=== PATIENT | male | born 1945 | race Caucasian/White ===

== ENCOUNTER → 2017-10-11 13:02 | Outpatient (CLI) | payer OTHER, SELFPAY ==
--- NOTE | 2017-10-11 | DI.CT.S_ITS ---
PROCEDURE: CT HEAD/BRAIN WO CON INDICATIONS: LEFT SIDED WEAKNESS/FACIAL DROOP TECHNIQUE: Noncontrast 4.5 mm thick angled axial sections acquired from the foramen magnum to the vertex, with coronal and sagittal reformats. For radiation dose reduction, the following was used: automated exposure control, adjustment of mA and/or kV according to patient size. COMPARISON: None. FINDINGS: Image quality: Excellent. CSF spaces: Basal cisterns are patent. No extra-axial fluid collections. The ventricles are symmetric in size and shape. Brain: No intracranial bleeds or masses. There is cerebral volume loss for age, with resultant ventricular and sulcal prominence. There are periventricular and deep white matter chronic small vessel ischemic changes. There is intracranial internal carotid artery atherosclerosis. Skull and face: Calvarium and visualized facial bones appear intact, without suspicious lesions. Sinuses: Visualized sinuses and mastoids are clear. IMPRESSION: No acute intracranial disease process. Dictated by: Meg Garcia MD, PhD on 10/11/2017 at 13:35 Approved by: Meg Garcia MD, PhD on 10/11/2017 at 13:37
== END ==
PROVIDERS: Family Provider Family Medicine; PCP Family Medicine; Visit Provider Family Medicine
DX: R53.1 Weakness (principal); R29.810 Facial weakness
CPT/HCPCS: 70450

== ENCOUNTER 2017-11-03 12:55 | Inpatient (IN) | payer OTHER, SELFPAY ==
[2017-11-03] VITALS (7 sets, daily range): BP systolic 105–147; BP diastolic 65–92; PULSE 56–80; RESP 14–20; TEMP 36.6–37.1; O2SAT 90–100; BMI 27.8
--- NOTE | 2017-11-03 13:25 | DI.CT.S_ITS ---
PROCEDURE: CT HEAD/BRAIN WO CON INDICATIONS: 72 year-old male with multiple falls. TECHNIQUE: Noncontrast 4.5 mm thick angled axial sections acquired from the foramen magnum to the vertex, with coronal and sagittal reformats. For radiation dose reduction, the following was used: automated exposure control, adjustment of mA and/or kV according to patient size. COMPARISON: [facility], CT, CT HEAD/BRAIN WO CON, 10/11/2017, 13:07. [facility], CT, HEAD WITHOUT CONTRAST, 12/19/2011, 10:14. FINDINGS: Image quality: Excellent. CSF spaces: Basal cisterns are patent. No extra-axial fluid collections. The ventricles are symmetric in size and shape. Brain: No intracranial bleeds or masses. Melgoza-white matter interface appears intact. There is intracranial internal carotid artery atherosclerosis. Skull and face: Calvarium and visualized facial bones appear intact, without suspicious lesions. Sinuses: Visualized sinuses and mastoids are clear. IMPRESSION: No acute intracranial abnormalities. Dictated by: Efrain Black M.D. on 11/03/2017 at 14:02 Approved by: Efrain Black M.D. on 11/03/2017 at 14:06
--- NOTE | 2017-11-03 14:08 | ED_ITS ---
HPI - Neuro Symptoms/Deficit General Chief Complaint: Neuro Symptoms/Deficit Stated Complaint: complications with Parkinsons Time Seen by Provider: 11/03/17 13:09 Source: patient and family Mode of arrival: ambulatory Limitations: no limitations History of Present Illness HPI Narrative: 72-year-old male with history of hyperlipidemia, Parkinson's, and chronic alcohol abuse presents to the emergency department with rapidly worsening confusion, auditory, and visual hallucinations for the past few days. Additionally he has fallen 3 times today. Furthermore he has been wandering out of the house and found entering the street as well. He denies any loss of consciousness as result of his falls. He denies any change in his alcohol consumption recently though he used to drink about 6 beers daily and is down to 2 or 3. Related Data Home Medications Medication Instructions Recorded Confirmed atorvastatin [Lipitor] 40 mg PO QDAY #0 06/23/16 11/03/17 carbidopa 50 mg PO HS #0 06/23/16 11/03/17 [id number] 5XD #0 06/23/16 rivastigmine [Exelon] 9.5 mg TD Q DAY #0 06/23/16 11/03/17 sertraline 100 mg PO DAILY 11/03/17 11/03/17 tolterodine 11/03/17 Allergies Allergy/AdvReac Type Severity Reaction Status Date / Time No Known Allergies Allergy Uncoded 09/05/17 13:01 Review of Systems Review of Systems All systems reviewed & are unremarkable except as noted in HPI and below Constitutional Denies chills, Denies fever(s), Denies lethargy and Denies weakness Eyes Denies change in vision, Denies eye discharge, Denies irritation and Denies loss of vision ENT Ears, Nose, Mouth, and Throat: Denies change in voice, Denies neck pain and Denies sore throat Cardiovascular Denies chest pain, Denies irregular heart rhythm, Denies lightheadedness, Denies palpitations, Denies dyspnea, Denies dyspnea on exertion and Denies orthopnea Respiratory Denies cough, Denies dyspnea, Denies dyspnea on exertion and Denies wheezing Gastrointestinal Gastrointestinal: Denies abdominal pain, Denies change in bowel habits, Denies diarrhea, Denies nausea and Denies vomiting Genitourinary Denies hematuria, Denies flank pain, Denies urinary incontinence and Denies urinary urgency Musculoskeletal Denies neck pain Integumentary/Breasts Denies pruritus, Denies erythema, Denies rash and Denies wounds Neurologic Reports behavioral changes, Reports confusion, Denies loss of vision and Denies weakness Psychiatric Denies anxiety, Reports behavioral changes, Reports confusion, Denies depression , Reports paranoia, Reports visual hallucinations, Reports hallucinations, Denies homicidal ideation and Denies suicidal ideation Endocrine Denies palpitations Hematologic/Lymphatic Denies easy bruising Allergic/Immunologic Denies wheezing PFSH Medical History Parkinson's disease dementia (Chronic) Hyperlipemia (Chronic) Multiple falls (Acute) Parkinson's disease (Chronic) Weakness generalized (Chronic) Dysphagia (Chronic) Social History Smoking Status: Former smoker Exam Narrative Exam Narrative: Pleasantly confused 72-year-old male in mild distress with some pressured speech Initial Vital Signs Initial Vital Signs: Vital Signs Temperature 98.2 F 11/03/17 13:11 Pulse Rate 59 L 11/03/17 13:11 Respiratory Rate 20 11/03/17 13:11 Blood Pressure 105/65 11/03/17 13:11 Pulse Oximetry 100 11/03/17 13:11 Const General: cooperative and well developed Nutritional Appearance: well nourished Orientation: alert, awake, oriented to person, oriented to place and confused [facility] Head: normocephalic and atraumatic Ears: external ears normal and TM's normal bilaterally Nose: external nose normal and No nasal discharge Face and sinus: sinuses nontender, face symmetric, no sinus tenderness and No dry mucous membranes Mouth: oral mucosae normal and moist mucous membranes Teeth and gingiva: dentition normal Throat: tonsils normal and uvula midline Eyes General: appearance normal, both eyes and all related structures Eyelids: eyelids normal Conjunctivae: conjunctivae normal Sclera: sclerae normal Pupils: PERRL EOM: EOM intact bilaterally Chest Chest: normal inspection of the chest Resp Effort & Inspection: normal respiratory effort, able to speak in complete sentences, no respiratory distress and no use of accessory muscles Auscultation: clear to auscultation bilaterally, no rales, no rhonchi and no wheezes GI Inspection: non-distended Palpation: soft, no hepatosplenomegaly, No guarding, No pulsatile mass and No tender Auscultation: normal bowel sounds Back/Spine/Pelvis Back: No CVA tenderness Cervical Spine: cervical ROM normal and No pain with cervical ROM Thoracic/Lumbar Spine: thoracic and lumbar spine normal to inspection Skin General: no rashes or lesions noted, No jaundice and No petechiae Neuro General: alert and awake Cranial Nerves: CN's II-XI intact bilaterally Speech: speech normal Sensory Exam: no sensory deficits noted Other: Mild resting tremor of bilateral upper extremities Psych Appearance: disheveled Speech and Movement: delayed speech and slowed movement Affect: blunted Attitude: cooperative Course Orders Ordered: ED Orders 11/03/17 13:25 CT head/brain wo con Stat Rapid Drug Screen, Urine Stat Urinalysis and Microscopic Stat EKG-12 Lead Stat 11/03/17 13:48 Ammonia (NH3) Stat Complete Blood Count AUTO DIFF Stat Comprehensive Metabolic Panel Stat Ethanol (ETOH) Stat Partial Thromboplastin Time Stat Prolactin Stat Prothrombin Time INR Stat 11/03/17 16:19 Education, smoking cessation ONGOING 11/03/17 16:25 Consult to Discharge Planning Routine Consult to Occupational Therapy Evaluate & Treat Consult to Physical Therapy Evaluate & Treat Complete Blood Count AUTO DIFF Routine 11/04/17 05:00 Comprehensive Metabolic Panel Routine Acetaminophen (Tylenol) 650 mg PO Q6HR PRN PRN Reason: As Needed for Fever/Mild Pain Al Hydrox/Mg Hydrox/Simethicone (Maalox Plus) 30 ml PO Q6HR PRN PRN Reason: Dyspepsia Atorvastatin Calcium (Lipitor) 40 mg PO DAILY VENKATESH Enoxaparin Sodium (Lovenox) 40 mg SUBCUT DAILY [facility]KATES[facility] Dextrose/Sodium Chloride (Dextrose 5%-0.9% Ns) 1,000 mls @ 100 mls/hr IV CONT VENKATESH Magnesium Hydroxide (Milk Of Magnesia) 30 ml PO DAILY PRN PRN Reason: Constipation Non-Formulary Medication (Carbidopa [Carbidopa]) 25 mg PO BEDTIME VENKATESH Non-Formulary Medication (Rivastigmine [Exelon]) 9.5 mg TD DAILY V[facility]KATES[facility] Non-Formulary Medication (Carbidopa/Levodopa/Encap 18.75/75/200) 18.75 mg PO 5XD [facility]KATES[facility] Pantoprazole Sodium (Protonix) 20 mg PO 0600 [facility]KATES[facility] Sertraline HCl (Zoloft) 100 mg PO DAILY V[facility]KATESH Discontinued Medications Sodium Chloride (Normal Saline 0.9%) 1,000 mls @ 150 mls/hr IV CONT VENKATESH Last Infusion: 11/03/17 16:18 Dose: 0 mls/hr Admin: 11/03/17 14:10 Dose: 150 mls/hr Thiamine HCl 100 mg/ Dextrose 51 mls @ 204 mls/hr IV NOW ONE Stop: 11/03/17 13:26 Last Infusion: 11/03/17 14:22 Dose: 0 mls/hr Admin: 11/03/17 14:10 Dose: 204 mls/hr Consultations Consultation #1: Patient seen and evaluated at the bedside by his primary care provider whom will admit Vital Signs - 8 hr 11/03/17 13:11 11/03/17 14:13 11/03/17 15:00 Temperature 98.2 F Pulse Rate 59 L 61 80 Respiratory Rate 20 14 20 Blood Pressure 105/65 Blood Pressure [Left Arm] 133/75 H 147/92 H Pulse Oximetry 100 90 L 94 11/03/17 16:00 11/03/17 16:25 Temperature 98.8 F Pulse Rate 65 56 L Respiratory Rate 18 Blood Pressure 136/72 H Blood Pressure [Left Arm] 108/89 H Pulse Oximetry 94 98 MDM - Neuro Symptoms/Deficit Differential Diagnosis Likely delirium, cerebrovascular accident, transient cerebral ischemia and other (Wernicke's, polypharmacy, UTI, ethanol withdrawal) Medical Records Attestation: I reviewed the patient's medical records. Lab Data Attestation: I reviewed the patient's lab results. Result diagrams: 11/03/17 13:48 11/03/17 13:48 Lab Results 11/03/17 11/03/17 11/03/17 Range/Units 13:48 13:48 13:48 WBC (4.5-11.0) X10^3/uL RBC (4.5-5.9) X10^6/uL Hgb (13.5-17.5) g/dL Hct (41-53) % MCV (80-100) fL MCH (26-34) PG MCHC (30-36) % RDW (11.6-14.8) % Plt Count (150-400) X10^3/uL Neut % (Auto) (50-75) % Lymph % (Auto) (25-40) % Bosque % (Auto) (3-14) % Eos % (Auto) (2-4) % Baso % (Auto) (0-2) % Neut # (Auto) (2990-6137) /uL PT 12.3 (10.1-12.7) SECONDS INR 1.1 (0.9-1.3) APTT 29 (26.4-36.2) SECONDS Sodium 141 (137-145) mmol/L Potassium 4.1 (3.4-5.1) mmol/L Chloride 104 (98-107) mmol/L Carbon Dioxide 27 (22-32) mmol/L BUN 20 (9-20) mg/dL Creatinine 1.00 (0.66-1.25) mg/dL Estimated GFR > 60.0 (>60) mL/min BUN/Creatinine Ratio 20.0 (6-22) Glucose 90 (80-110) mg/dL Calcium 9.1 (8.4-10.2) mg/dL Total Bilirubin 1.0 (0.2-1.3) mg/dL AST 21 (17-59) IU/L ALT 21 (21-72) IU/L Alkaline Phosphatase 64 (38-126) U/L Ammonia < 9.0 L (9-30) umol/L Total Protein 6.9 (6.3-8.2) g/dL Albumin 4.1 (3.5-5.0) g/dL Globulin 2.8 (1.7-4.1) g/dL Albumin/Globulin Ratio 1.5 (1.0-2.8) Prolactin 10.3 (3.7-17.9) ng/mL Ethyl Alcohol < 10 mg/dL 11/03/17 Range/Units 13:48 WBC 9.0 (4.5-11.0) X10^3/uL RBC 4.72 (4.5-5.9) X10^6/uL Hgb 14.3 (13.5-17.5) g/dL Hct 41.8 (41-53) % MCV 88.6 (80-100) fL MCH 30.3 (26-34) PG MCHC 34.3 (30-36) % RDW 12.9 (11.6-14.8) % Plt Count 152 (150-400) X10^3/uL Neut % (Auto) 73.1 (50-75) % Lymph % (Auto) 18.7 L (25-40) % Bosque % (Auto) 7.4 (3-14) % Eos % (Auto) 0.4 L (2-4) % Baso % (Auto) 0.4 (0-2) % Neut # (Auto) 6600 H (6000-9485) /uL PT (10.1-12.7) SECONDS INR (0.9-1.3) APTT (26.4-36.2) SECONDS Sodium (137-145) mmol/L Potassium (3.4-5.1) mmol/L Chloride (98-107) mmol/L Carbon Dioxide (22-32) mmol/L BUN (9-20) mg/dL Creatinine (0.66-1.25) mg/dL Estimated GFR (>60) mL/min BUN/Creatinine Ratio (6-22) Glucose (80-110) mg/dL Calcium (8.4-10.2) mg/dL Total Bilirubin (0.2-1.3) mg/dL AST (17-59) IU/L ALT (21-72) IU/L Alkaline Phosphatase (38-126) U/L Ammonia (9-30) umol/L Total Protein (6.3-8.2) g/dL Albumin (3.5-5.0) g/dL Globulin (1.7-4.1) g/dL Albumin/Globulin Ratio (1.0-2.8) Prolactin (3.7-17.9) ng/mL Ethyl Alcohol mg/dL Discharge Plan Departure Patient Disposition: Admitted As Inpatient Clinical Impression: Acute delirium, Multiple falls Discharge Date/Time: 11/03/17 16:34 Interventions: ED Discharge Assessment Last Done: 11/03/17 16:16 Admit Date/Time: 11/03/17 15:59 Admit Provider: Hao Peña
[2017-11-03] MEDS: THIAMINE 100 MG in DEXTROSE 5 % IN WATER 50 ML 204 ML IV (14:10)
[2017-11-03] MEDS: SODIUM CHLORIDE 0.9% 1,000 ML 150 ML IV (14:10)
[2017-11-03 14:11] LABS: Add Manual Diff / Slide Review NO; Basophils Percent Auto 0.4 % (0-2); Eosinophils Percent Auto 0.4 % (2-4); Hematocrit 41.8 % (41-53); Hemoglobin 14.3 g/dL (13.5-17.5); INR 1.1 (0.9-1.3); Lymphocytes Percent Auto 18.7 % (25-40); Mean Corpuscular HGB Conc 34.3 % (30-36); Mean Corpuscular Hemoglobin 30.3 PG (26-34); Mean Corpuscular Volume 88.6 fL (80-100); Monocytes Percent Auto 7.4 % (3-14); Neutrophils Absolute Auto 6600 /uL (3000-5900); Neutrophils Percent Auto 73.1 % (50-75); Platelet Count 152 X10^3/uL (150-400); Prothrombin Time 12.3 SECONDS (10.1-12.7); Red Blood Cell Count 4.72 X10^6/uL (4.5-5.9); Red Cell Distribution Width 12.9 % (11.6-14.8)
[2017-11-03 14:14] LABS: PTT Partial Thromboplastin Tim 29 SECONDS (26.4-36.2)
[2017-11-03 14:15] LABS: Ammonia (NH3) < 9.0 umol/L (9-30)
[2017-11-03 14:17] LABS: Alanine Aminotransferase 21 IU/L (21-72); Albumin 4.1 g/dL (3.5-5.0); Albumin Globulin Ratio 1.5 (1.0-2.8); Alkaline Phosphatase 64 U/L (38-126); Aspartate Aminotransferase 21 IU/L (17-59); Blood Urea Nitrogen 20 mg/dL (9-20); Calcium 9.1 mg/dL (8.4-10.2); Carbon Dioxide 27 mmol/L (22-32); Chloride 104 mmol/L (98-107); Estimated Glomerular Filt Rate > 60.0 mL/min (>60); Ethanol (ETOH) < 10 mg/dL; Globulin 2.8 g/dL (1.7-4.1); Glucose 90 mg/dL (80-110); HEMOLYSIS 17 (0-50); Potassium 4.1 mmol/L (3.4-5.1); Sodium 141 mmol/L (137-145); Total Protein 6.9 g/dL (6.3-8.2)
[2017-11-03 14:32] LABS: Prolactin 10.3 ng/mL (3.7-17.9)
--- NOTE | 2017-11-03 16:37 | PM.HP.1 ---
History of Present Illness Date Patient Seen: 11/03/17 Time Patient Seen: 16:39 Chief complaint: complications with Parkinsons Narrative: Longstanding patient of mine has developed Parkinson's over the past several years followed closely by Neurology and on medications he has progressed to a more complicated process over these past several months with more confusion, hallucinosis, unstable gait, and some concerns of dementia. I think I last saw him in the office last month in the 1 of the concerns at that time was urinary incontinence so we had addressed that with any medication. Neurology is also made some adjustments as they try to deal with his hallucinosis though does seem to be helping very much. Family is present during the interview on the offer that over the past week or so he has worsened significantly, noting hallucinations pretty much all day when he is sleeping. He is seeing children in the yd a boat other things that do not make any sense hearing things as well. Izabel seems also more unsteady on his feet he seems to cross his legs when he tries to walk often tripping and falling. Today he was sitting in a sit-down walker when somehow he managed to fall over backwards and not his head pretty hard on a hard floor this combination of factors has left the family very concerned about his safety. Also today he wandered off and wanted some distance from home and the whole picture had them concerned enough that it was time to have him evaluated. He is brought to the emergency room where he was evaluated with labs and imaging nothing really clear to clearly shows up. He does have an alcohol history although according to family he is actually drinking less now than usual sounds like a six-pack of beer a night was his usual now it is more like 1 beer. Patient History Medical History Parkinson's disease dementia (Chronic) Hyperlipemia (Chronic) Multiple falls (Acute) Parkinson's disease (Chronic) Weakness generalized (Chronic) Dysphagia (Chronic) Family & Social History Family history unavailable: Yes Social History: Lives locally well supported by family, retired. Safety & Behavioral: Feels Safe in Current Yes Environment Tobacco & Substance use: Smoking Status Former smoker alcohol intake frequency 0-2 drinks per day Substance Use Type does not use Comment: Parkinson's disease with progressive dementia developing over the past several years. Hyperlipidemia Alcohol use Former smoker Meds Home Medications Medication Instructions Recorded Confirmed Type atorvastatin [Lipitor] 40 mg PO QDAY #0 06/23/16 11/03/17 History carbidopa 50 mg PO HS #0 06/23/16 11/03/17 History [id number] 5XD #0 06/23/16 History rivastigmine [Exelon] 9.5 mg TD Q DAY #0 06/23/16 11/03/17 History sertraline 100 mg PO DAILY 11/03/17 11/03/17 History tolterodine 11/03/17 History Allergies Allergy/AdvReac Type Severity Reaction Status Date / Time No Known Allergies Allergy Uncoded 09/05/17 13:01 Review of Systems Constitutional Constitutional: Reports frequent falls and Reports weakness Eyes Eyes: Reports system reviewed; no additional complaints, except as documented ENT Ears, Nose, Mouth, and Throat: Yes system reviewed; no additional complaints, except as documented and Yes dizziness Cardiovascular Cardiovascular: Reports system reviewed; no additional complaints, except as documented Respiratory Respiratory: Reports system reviewed and no additional complaints, except as documented Gastrointestinal Gastrointestinal: Reports system reviewed and no additional complaints, except as documented Genitourinary Genitourinary: Reports urinary incontinence Musculoskeletal Musculoskeletal: Reports abnormal gait and Reports muscle weakness Integumentary/Breasts Skin/Breast: Reports system reviewed and no additional complaints, except as documented Neurologic Neurologic: Reports abnormal movements, Reports abnormal speech, Reports abnormal gait, Reports behavioral changes, Reports confusion, Reports dizziness, Reports frequent falls, Reports lack of coordination, Reports memory loss, Reports other visual disturbances, Reports tremor(s) and Reports weakness Psychiatric Psychiatric: Reports behavioral changes, Reports confusion, Reports auditory hallucinations, Reports memory loss, Reports visual hallucinations and Reports tactile hallucinations Endocrine Endocrine: Reports system reviewed and no additional complaints, except as documented Hematologic/Lymphatic Hematologic/Lymphatic: Reports system reviewed and no additional complaints, except as documented Allergic/Immunologic Allergic/Immunologic: Reports system reviewed and no additional complaints, except as documented Exam Vital Signs (past 8 hours): Vital Signs - 8 hr 11/03/17 13:11 11/03/17 14:13 11/03/17 15:00 Temperature 98.2 F Pulse Rate 59 L 61 80 Respiratory Rate 20 14 20 Blood Pressure 105/65 Blood Pressure [Left Arm] 133/75 H 147/92 H Pulse Oximetry 100 90 L 94 11/03/17 16:00 Temperature Pulse Rate 65 Respiratory Rate Blood Pressure Blood Pressure [Left Arm] 108/89 H Pulse Oximetry 94 Pulse Oximetry 94 Oxygen Delivery Method Room Air Const General: disheveled and frail appearing Nutritional Appearance: well nourished Orientation: alert, awake, oriented to person, oriented to place and confused Limitations: altered mental status [facility] Head: normocephalic and atraumatic Ears: hearing grossly normal bilaterally Nose: external nose normal Face and sinus: normal facial exam Mouth: oral mucosae normal Teeth and gingiva: dentition normal Eyes General: appearance normal, both eyes and all related structures Pupils: PERRL EOM: EOM intact bilaterally Neck Neck: normal visual inspection Thyroid: thyroid normal Chest Chest: normal inspection of the chest Resp Effort & Inspection: normal respiratory effort Auscultation: clear to auscultation bilaterally Cardio Palpation: normal PMI Rate: regular rate Rhythm: regular rhythm GI Inspection: normal to inspection Palpation: soft and no hepatosplenomegaly Auscultation: normal bowel sounds Back/Spine/Pelvis Back: normal to inspection Cervical Spine: normal cervical lordosis Thoracic/Lumbar Spine: thoracic and lumbar spine normal to inspection Skin General: ecchymosis Lesions: no lesions Neuro General: alert and awake Cranial Nerves: CN's II-XI intact bilaterally Cognition: abnormal cognition Speech: speech normal Sensory Exam: no sensory deficits noted Extrem General: normal to inspection Psych Appearance: grossly normal Speech and Movement: speech and movement normal Mood: anxious mood Affect: normal affect Attitude: cooperative Thought Process: confabulating Thought Content: delusions and hallucinations Objective Labs Result Diagrams: 11/03/17 13:48 11/03/17 13:48 Labs: Laboratory Results - last 24 hr 11/03/17 11/03/17 11/03/17 13:48 13:48 13:48 WBC RBC Hgb Hct MCV MCH MCHC RDW Plt Count Neut % (Auto) Lymph % (Auto) Porter % (Auto) Eos % (Auto) Baso % (Auto) Neut # (Auto) PT 12.3 INR 1.1 APTT 29 Sodium 141 Potassium 4.1 Chloride 104 Carbon Dioxide 27 BUN 20 Creatinine 1.00 Estimated GFR > 60.0 BUN/Creatinine Ratio 20.0 Glucose 90 Calcium 9.1 Total Bilirubin 1.0 AST 21 ALT 21 Alkaline Phosphatase 64 Ammonia < 9.0 L Total Protein 6.9 Albumin 4.1 Globulin 2.8 Albumin/Globulin Ratio 1.5 Prolactin 10.3 Ethyl Alcohol < 10 11/03/17 13:48 WBC 9.0 RBC 4.72 Hgb 14.3 Hct 41.8 MCV 88.6 MCH 30.3 MCHC 34.3 RDW 12.9 Plt Count 152 Neut % (Auto) 73.1 Lymph % (Auto) 18.7 L Porter % (Auto) 7.4 Eos % (Auto) 0.4 L Baso % (Auto) 0.4 Neut # (Auto) 6600 H PT INR APTT Sodium Potassium Chloride Carbon Dioxide BUN Creatinine Estimated GFR BUN/Creatinine Ratio Glucose Calcium Total Bilirubin AST ALT Alkaline Phosphatase Ammonia Total Protein Albumin Globulin Albumin/Globulin Ratio Prolactin Ethyl Alcohol Assessment & Plan (1) Acute delirium: Problem details: History of hallucinosis dating back some months but with worsening episodes these past few weeks and especially the last week with increasing falls confusion and abnormal behavior. Now wondering off and at risk, including some injuries from recent falls. May be due in part to his evolving dementia from Parkinson's but also could be a medication reaction. Will stop tolterodine as likely suspect but keep everything else the same. Current visit: Yes Status: Acute (2) Multiple falls: Problem details: Related to above this has been an issue for a while but nothing quite so persistent or intense and with considerable risk of harm. Seems to be an ataxia issue as well as a judgment issue. Current visit: Yes Status: Acute (3) Parkinson's disease: Problem details: Involving and slowly worsening followed by neurology they have been adjusting medications somewhat, he does have an appointment later this month with them. Current visit: Yes Status: Chronic (4) Weakness generalized: Current visit: Yes Status: Chronic (5) Hyperlipemia: Problem details: Chronic untreated Current visit: Yes Status: Chronic (6) Parkinson's disease dementia: Problem details: My suspicion is this problem has been evolving over the past several months and is contributing to some of the above issues. Current visit: Yes Status: Chronic (7) Dysphagia: Problem details: This was a significant issue in his last hospitalization so not clear that he is still having this issue but will evaluate for that as well. Current visit: Yes Status: Chronic (8) Volume depletion: Problem details: Family reports that he only takes about a glass of water a day so there may be a more chronic issue related to this problem. Current visit: Yes Status: Acute Plan: Assessment/Plan Narrative: Will hold the 1 medication continue the others hydrate him IV monitor labs get PT OT involved also case management to consider options. Family is considering additional help at home vs facility. Will try to contact Neurology on Sunday.
[2017-11-03 17:26] LABS: Add Manual Diff / Slide Review NO; Basophils Percent Auto 0.3 % (0-2); Eosinophils Percent Auto 0.8 % (2-4); Hematocrit 40.2 % (41-53); Hemoglobin 13.6 g/dL (13.5-17.5); Lymphocytes Percent Auto 27.6 % (25-40); Mean Corpuscular HGB Conc 33.8 % (30-36); Mean Corpuscular Hemoglobin 30.2 PG (26-34); Mean Corpuscular Volume 89.1 fL (80-100); Monocytes Percent Auto 7.8 % (3-14); Neutrophils Absolute Auto 5500 /uL (3000-5900); Neutrophils Percent Auto 63.5 % (50-75); Platelet Count 136 X10^3/uL (150-400); Red Blood Cell Count 4.51 X10^6/uL (4.5-5.9); White Blood Cell Count 8.7 X10^3/uL (4.5-11.0)
[2017-11-03] MEDS: CARBIDOPA PO ×2 (17:51→22:13)
[2017-11-03] MEDS: LEVODOPA PO ×2 (17:51→22:13)
[2017-11-03] MEDS: [UNRECOGNIZED DRUG - OTHER] PO ×2 (17:51→22:13)
[2017-11-03] MEDS: DEXTROSE 5%-0.9% NS 1,000 ML 100 ML IV (17:53)
[2017-11-03 18:28] LABS: Bacteria Urine None Seen
--- NOTE | 2017-11-03 18:28 | PC.NURSE ---
admit pt to AC from ER around 1615. VSS Pt oriented to self only. supportive family at bedside states falls and confusion have increased since a few of pt's medications were adjusted approx 3 weeks ago. notified of the same. Pt oriented to room and plan of care but will need reinforcement. Bed alarm on with call light in reach. UA sent.
[2017-11-03 18:34] LABS: Appearance Urine UA CLEAR; Bilirubin Urine UA NEGATIVE (NEGATIVE); Glucose Urine UA NEGATIVE (Normal); Ketones Urine UA TRACE (NEGATIVE); Leukocyte Esterase Urine UA NEGATIVE (NEGATIVE); Nitrite Urine UA Negative (Negative); Occult Blood Urine UA NEGATIVE (Negative); Protein Urine UA NEGATIVE (Negative); Urobilinogen Urine UA 0.2 E.U./dL (0.2); pH Urine UA 5.5 (4.5-8.0)
[2017-11-03 18:37] LABS: Urine Amphetamines Negative (Negative); Urine Barbiturates Negative (Negative); Urine Benzodiazepines Negative (Negative); Urine Cocaine Negative (Negative); Urine MDMA Negative (Negative); Urine Methadone Negative (Negative); Urine Methamphetamines Negative (Negative); Urine Morphine/Opi cutoff 2000 Negative (Negative); Urine Oxycodone Negative (Negative); Urine Phencyclidine Negative (Negative); Urine Tetrahydrocannabinol Negative (Negative); Urine Tricyclic Antidepressant Negative (Negative)
[2017-11-03 18:40] LABS: Color Urine UA Orange
[2017-11-03 18:48] LABS: RBC Urine 0-1/HPF (0-5/HPF); Squamous Epithelial Cell Urine None Seen; WBC Urine 0-1/HPF (0-5/HPF)
[2017-11-04] VITALS (8 sets, daily range): BP systolic 101–132; BP diastolic 65–94; PULSE 60–65; RESP 14–20; TEMP 36.3–36.8; O2SAT 93–97
[2017-11-04] MEDS: DEXTROSE 5%-0.9% NS 1,000 ML 100 ML IV ×2 (04:18→14:40)
[2017-11-04] MEDS: [UNRECOGNIZED DRUG - OTHER] PO ×5 (05:38→21:30)
[2017-11-04] MEDS: CARBIDOPA PO ×5 (05:38→21:30)
[2017-11-04] MEDS: LEVODOPA PO ×5 (05:38→21:30)
[2017-11-04 05:41] LABS: HEMOLYSIS < 15 (0-50)
[2017-11-04] MEDS: PANTOPRAZOLE 20 MG TABLET PO (05:41)
[2017-11-04 05:42] LABS: Alanine Aminotransferase 23 IU/L (21-72); Albumin 3.1 g/dL (3.5-5.0); Albumin Globulin Ratio 1.2 (1.0-2.8); Alkaline Phosphatase 48 U/L (38-126); Aspartate Aminotransferase 16 IU/L (17-59); BUN Creatinine Ratio 22.9 (6-22); Bilirubin Total 0.8 mg/dL (0.2-1.3); Blood Urea Nitrogen 16 mg/dL (9-20); Calcium 8.3 mg/dL (8.4-10.2); Carbon Dioxide 28 mmol/L (22-32); Chloride 108 mmol/L (98-107); Estimated Glomerular Filt Rate > 60.0 mL/min (>60); Globulin 2.6 g/dL (1.7-4.1); Glucose 117 mg/dL (80-110); Sodium 141 mmol/L (137-145); Total Protein 5.7 g/dL (6.3-8.2)
[2017-11-04 06:14] LABS: Potassium 3.6 mmol/L (3.4-5.1)
[2017-11-04] MEDS: RIVASTIGMINE 9.5 MG 9.5 EACH TD (10:37)
[2017-11-04] MEDS: SERTRALINE 50 MG TABLET 100 MG PO (10:37)
[2017-11-04] MEDS: ATORVASTATIN 20 MG TABLET 40 MG PO (10:37)
[2017-11-04] MEDS: ENOXAPARIN 40 MG/0.4 ML SYRINGE SUBCUT (10:38)
--- NOTE | 2017-11-04 10:59 | PM.PN.1 ---
Subjective Date Patient Seen: 11/04/17 Time Patient Seen: 10:59 Interval history: Feeling okay, seeming a little uncertain as to why he is here. Reviewed recent history including falls and wandering off and he does seem to recall that somewhat. Also in the back of the head after his recent fall. Otherwise no complaints. He does ask about the ?wire? coming out of his wrist which I explained is a IV catheter. Exam Vital Signs (past 8 hours): Vital Signs - 8 hr 11/04/17 03:23 11/04/17 04:33 11/04/17 08:00 Temperature 97.4 F L 97.3 F L Pulse Rate 60 65 Respiratory Rate 14 16 Blood Pressure 132/78 H 123/76 H Pulse Oximetry 95 93 96 Pulse Oximetry 96 Oxygen Delivery Method Room Air Oxygen Flow Rate 0 Narrative Exam Narrative: Sitting up in bed having breakfast no acute distress. Conversant, mostly appropriate. Does note ongoing visual hallucinations. HEENT shows the wounds and the occiput otherwise unremarkable chest is clear heart regular without murmur abdomen soft nontender nondistended normoactive bowel tones extremities benign urologically shows left hand tremor otherwise unremarkable Objective Labs Result Diagrams: 11/03/17 17:15 11/04/17 05:10 Labs: Laboratory Results - last 24 hr 11/03/17 11/03/17 11/03/17 13:25 13:48 13:48 WBC RBC Hgb Hct MCV MCH MCHC RDW Plt Count Neut % (Auto) Lymph % (Auto) [place] % (Auto) Eos % (Auto) Baso % (Auto) Neut # (Auto) PT 12.3 INR 1.1 APTT 29 Sodium 141 Potassium 4.1 Chloride 104 Carbon Dioxide 27 BUN 20 Creatinine 1.00 Estimated GFR > 60.0 BUN/Creatinine Ratio 20.0 Glucose 90 Calcium 9.1 Total Bilirubin 1.0 AST 21 ALT 21 Alkaline Phosphatase 64 Ammonia Total Protein 6.9 Albumin 4.1 Globulin 2.8 Albumin/Globulin Ratio 1.5 Prolactin 10.3 Urine Color Urine Appearance Urine pH Ur Specific [place] Urine Protein Urine Glucose (UA) Urine Ketones Urine Occult Blood Urine Nitrate Urine Bilirubin Urine Urobilinogen Ur Leukocyte Esterase Urine RBC Urine WBC Ur Squamous Epith Cells Urine Bacteria Ur Culture Indicated? Micro UA Comment Urine Opiates Screen Negative Ur Oxycodone Screen Negative Urine Methadone Screen Negative Ur Barbiturates Screen Negative U Tricyclic Antidepress Negative Ur Phencyclidine Scrn Negative Ur Amphetamines Screen Negative U Methamphetamines Scrn Negative Ur MDMA Scrn (Ecstasy) Negative U Benzodiazepines Scrn Negative Urine Cocaine Screen Negative U Marijuana (THC) Screen Negative Ethyl Alcohol < 10 11/03/17 11/03/17 11/03/17 13:48 13:48 17:15 WBC 9.0 8.7 RBC 4.72 4.51 Hgb 14.3 13.6 Hct 41.8 40.2 L MCV 88.6 89.1 MCH 30.3 30.2 MCHC 34.3 33.8 RDW 12.9 13.0 Plt Count 152 136 L Neut % (Auto) 73.1 63.5 Lymph % (Auto) 18.7 L 27.6 [place] % (Auto) 7.4 7.8 Eos % (Auto) 0.4 L 0.8 L Baso % (Auto) 0.4 0.3 Neut # (Auto) 6600 H 5500 PT INR APTT Sodium Potassium Chloride Carbon Dioxide BUN Creatinine Estimated GFR BUN/Creatinine Ratio Glucose Calcium Total Bilirubin AST ALT Alkaline Phosphatase Ammonia < 9.0 L Total Protein Albumin Globulin Albumin/Globulin Ratio Prolactin Urine Color Urine Appearance Urine pH Ur Specific [place] Urine Protein Urine Glucose (UA) Urine Ketones Urine Occult Blood Urine Nitrate Urine Bilirubin Urine Urobilinogen Ur Leukocyte Esterase Urine RBC Urine WBC Ur Squamous Epith Cells Urine Bacteria Ur Culture Indicated? Micro UA Comment Urine Opiates Screen Ur Oxycodone Screen Urine Methadone Screen Ur Barbiturates Screen U Tricyclic Antidepress Ur Phencyclidine Scrn Ur Amphetamines Screen U Methamphetamines Scrn Ur MDMA Scrn (Ecstasy) U Benzodiazepines Scrn Urine Cocaine Screen U Marijuana (THC) Screen Ethyl Alcohol 11/03/17 11/04/17 18:19 05:10 WBC RBC Hgb Hct MCV MCH MCHC RDW Plt Count Neut % (Auto) Lymph % (Auto) [place] % (Auto) Eos % (Auto) Baso % (Auto) Neut # (Auto) PT INR APTT Sodium 141 Potassium 3.6 Chloride 108 H Carbon Dioxide 28 BUN 16 Creatinine 0.70 Estimated GFR > 60.0 BUN/Creatinine Ratio 22.9 H Glucose 117 H Calcium 8.3 L Total Bilirubin 0.8 AST 16 L ALT 23 Alkaline Phosphatase 48 Ammonia Total Protein 5.7 L Albumin 3.1 L Globulin 2.6 Albumin/Globulin Ratio 1.2 Prolactin Urine Color [place] Urine Appearance Clear Urine pH 5.5 Ur Specific [place] 1.010 Urine Protein Negative Urine Glucose (UA) Negative Urine Ketones Trace H Urine Occult Blood Negative Urine Nitrate Negative Urine Bilirubin Negative Urine Urobilinogen 0.2 Ur Leukocyte Esterase Negative Urine RBC 0-1/hpf Urine WBC 0-1/hpf Ur Squamous Epith Cells None seen Urine Bacteria None seen Ur Culture Indicated? Not Reportable Micro UA Comment Not Reportable Urine Opiates Screen Ur Oxycodone Screen Urine Methadone Screen Ur Barbiturates Screen U Tricyclic Antidepress Ur Phencyclidine Scrn Ur Amphetamines Screen U Methamphetamines Scrn Ur MDMA Scrn (Ecstasy) U Benzodiazepines Scrn Urine Cocaine Screen U Marijuana (THC) Screen Ethyl Alcohol Assessment & Plan (1) Acute delirium: Problem details: Hallucinations continue, remained somewhat confused, may be approaching baseline, but overall I feel he is developing dementia. I feel he needs ongoing observation, and will see how OT and PT find him and their evaluations. Current visit: Yes Status: Acute (2) Volume depletion: Problem details: Improved with IV fluids. Current visit: Yes Status: Acute (3) Parkinson's disease dementia: Problem details: My suspicion is this problem has been evolving over the past several months and is contributing to some of the above issues. Current visit: Yes Status: Chronic (4) Weakness generalized: Problem details: Pending PT and OT. Current visit: Yes Status: Chronic (5) Multiple falls: Problem details: Related to above this has been an issue for a while but nothing quite so persistent or intense and with considerable risk of harm. Seems to be an ataxia issue as well as a judgment issue. Current visit: Yes Status: Acute (6) Dysphagia: Problem details: This was a significant issue in his last hospitalization so not clear that he is still having this issue but will evaluate for that as well. So far no clear evidence of issues at this time. Current visit: Yes Status: Chronic Plan: Assessment/Plan Narrative: Awaiting PT and OT, continue IV fluids, follow labs. Anticipating need for a more structured environment in a facility post discharge. Would be good to to have a neurologic evaluation here but will see if he can contact his neurologist tomorrow for their opinion. Quality VTE Deep Vein Thrombosis/Pulmonary Embolism Present on Admission: No
--- NOTE | 2017-11-04 11:04 | P.PN_ITS ---
Subjective Date Patient Seen: 11/04/17 Time Patient Seen: 10:59 Interval history: Feeling okay, seeming a little uncertain as to why he is here. Reviewed recent history including falls and wandering off and he does seem to recall that somewhat. Also in the back of the head after his recent fall. Otherwise no complaints. He does ask about the ?wire? coming out of his wrist which I explained is a IV catheter. Exam Vital Signs (past 8 hours): Vital Signs - 8 hr 3 11/04/17 03:23 11/04/17 04:33 11/04/17 08:00 Temperature 97.4 F L 97.3 F L Pulse Rate 60 65 Respiratory Rate 14 16 Blood Pressure 132/78 H 123/76 H Pulse Oximetry 95 93 96 Pulse Oximetry 96 Oxygen Delivery Method Room Air Oxygen Flow Rate 0 Narrative Exam Narrative: Sitting up in bed having breakfast no acute distress. Conversant , mostly appropriate. Does note ongoing visual hallucinations. HEENT shows the wounds and the occiput otherwise unremarkable chest is clear heart regular without murmur abdomen soft nontender nondistended normoactive bowel tones extremities benign urologically shows left hand tremor otherwise unremarkable Objective Labs Result Diagrams: 11/03/17 17:15 11/04/17 05:10 Labs: Laboratory Results - last 24 hr 11/03/17 11/03/17 11/03/17 13:25 13:48 13:48 WBC RBC Hgb Hct MCV MCH MCHC RDW Plt Count Neut % (Auto) Lymph % (Auto) [place] % (Auto) Eos % (Auto) Baso % (Auto) Neut # (Auto) PT 12.3 INR 1.1 APTT 29 Sodium 141 Potassium 4.1 Chloride 104 Carbon Dioxide 27 BUN 20 Creatinine 1.00 Estimated GFR > 60.0 BUN/Creatinine Ratio 20.0 Glucose 90 Calcium 9.1 Total Bilirubin 1.0 AST 21 ALT 21 Alkaline Phosphatase 64 Ammonia Total Protein 6.9 Albumin 4.1 Globulin 2.8 Albumin/Globulin Ratio 1.5 Prolactin 10.3 Urine Color Urine Appearance Urine pH Ur Specific [place] Urine Protein Urine Glucose (UA) Urine Ketones Urine Occult Blood Urine Nitrate Urine Bilirubin Urine Urobilinogen Ur Leukocyte Esterase Urine RBC Urine WBC Ur Squamous Epith Cells Urine Bacteria Ur Culture Indicated? Micro UA Comment Urine Opiates Screen Negative Ur Oxycodone Screen Negative Urine Methadone Screen Negative Ur Barbiturates Screen Negative U Tricyclic Antidepress Negative Ur Phencyclidine Scrn Negative Ur Amphetamines Screen Negative U Methamphetamines Scrn Negative Ur MDMA Scrn (Ecstasy) Negative U Benzodiazepines Scrn Negative Urine Cocaine Screen Negative U Marijuana (THC) Screen Negative Ethyl Alcohol < 10 11/03/17 11/03/17 11/03/17 13:48 13:48 17:15 WBC 9.0 8.7 RBC 4.72 4.51 Hgb 14.3 13.6 Hct 41.8 40.2 L MCV 88.6 89.1 MCH 30.3 30.2 MCHC 34.3 33.8 RDW 12.9 13.0 Plt Count 152 136 L Neut % (Auto) 73.1 63.5 Lymph % (Auto) 18.7 L 27.6 [place] % (Auto) 7.4 7.8 Eos % (Auto) 0.4 L 0.8 L Baso % (Auto) 0.4 0.3 Neut # (Auto) 6600 H 5500 PT INR APTT Sodium Potassium Chloride Carbon Dioxide BUN Creatinine Estimated GFR BUN/Creatinine Ratio Glucose Calcium Total Bilirubin AST ALT Alkaline Phosphatase Ammonia < 9.0 L Total Protein Albumin Globulin Albumin/Globulin Ratio Prolactin Urine Color Urine Appearance Urine pH Ur Specific [place] Urine Protein Urine Glucose (UA) Urine Ketones Urine Occult Blood Urine Nitrate Urine Bilirubin Urine Urobilinogen Ur Leukocyte Esterase Urine RBC Urine WBC Ur Squamous Epith Cells Urine Bacteria Ur Culture Indicated? Micro UA Comment Urine Opiates Screen Ur Oxycodone Screen Urine Methadone Screen Ur Barbiturates Screen U Tricyclic Antidepress Ur Phencyclidine Scrn Ur Amphetamines Screen U Methamphetamines Scrn Ur MDMA Scrn (Ecstasy) U Benzodiazepines Scrn Urine Cocaine Screen U Marijuana (THC) Screen Ethyl Alcohol 11/03/17 11/04/17 18:19 05:10 WBC RBC Hgb Hct MCV MCH MCHC RDW Plt Count Neut % (Auto) Lymph % (Auto) [place] % (Auto) Eos % (Auto) Baso % (Auto) Neut # (Auto) PT INR APTT Sodium 141 Potassium 3.6 Chloride 108 H Carbon Dioxide 28 BUN 16 Creatinine 0.70 Estimated GFR > 60.0 BUN/Creatinine Ratio 22.9 H Glucose 117 H Calcium 8.3 L Total Bilirubin 0.8 AST 16 L ALT 23 Alkaline Phosphatase 48 Ammonia Total Protein 5.7 L Albumin 3.1 L Globulin 2.6 Albumin/Globulin Ratio 1.2 Prolactin Urine Color [place] Urine Appearance Clear Urine pH 5.5 Ur Specific [place] 1.010 Urine Protein Negative Urine Glucose (UA) Negative Urine Ketones Trace H Urine Occult Blood Negative Urine Nitrate Negative Urine Bilirubin Negative Urine Urobilinogen 0.2 Ur Leukocyte Esterase Negative Urine RBC 0-1/hpf Urine WBC 0-1/hpf Ur Squamous Epith Cells None seen Urine Bacteria None seen Ur Culture Indicated? Not Reportable Micro UA Comment Not Reportable Urine Opiates Screen Ur Oxycodone Screen Urine Methadone Screen Ur Barbiturates Screen U Tricyclic Antidepress Ur Phencyclidine Scrn Ur Amphetamines Screen U Methamphetamines Scrn Ur MDMA Scrn (Ecstasy) U Benzodiazepines Scrn Urine Cocaine Screen U Marijuana (THC) Screen Ethyl Alcohol Assessment & Plan (1) Acute delirium: Problem details: Hallucinations continue, remained somewhat confused, may be approaching baseline , but overall I feel he is developing dementia. I feel he needs ongoing observation, and will see how OT and PT find him and their evaluations. Current visit: Yes Status: Acute (2) Volume depletion: Problem details: Improved with IV fluids. Current visit: Yes Status: Acute (3) Parkinson's disease dementia: Problem details: My suspicion is this problem has been evolving over the past several months and is contributing to some of the above issues. Current visit: Yes Status: Chronic (4) Weakness generalized: Problem details: Pending PT and OT. Current visit: Yes Status: Chronic (5) Multiple falls: Problem details: Related to above this has been an issue for a while but nothing quite so persistent or intense and with considerable risk of harm. Seems to be an ataxia issue as well as a judgment issue. Current visit: Yes Status: Acute (6) Dysphagia: Problem details: This was a significant issue in his last hospitalization so not clear that he is still having this issue but will evaluate for that as well. So far no clear evidence of issues at this time. Current visit: Yes Status: Chronic Plan: Assessment/Plan Narrative: Awaiting PT and OT, continue IV fluids, follow labs. Anticipating need for a more structured environment in a facility post discharge. Would be good to to have a neurologic evaluation here but will see if he can contact his neurologist tomorrow for their opinion. Quality VTE Deep Vein Thrombosis/Pulmonary Embolism Present on Admission: No
--- NOTE | 2017-11-04 11:31 | CM.DANOTE ---
Addendum entered by Clara Vazquez LPN 11/04/17 15:27: of note: Nicole denies that pt has ever wandered out of the house. He moves extremely slowly when doing well and only is up to and from bathroom at night. Original Note: Addendum entered by Clara Vazquez LPN 11/04/17 15:03: Met with Nicole as planned. Her daughter Marnie was here for part of the conversation. PT Zane worked with pt during this time and Nicole was able to give much needed input. Nicole noted pt has needed overall supervision and support but has declined rapidly, cognitively and in terms of functional abilities in the last 2 weeks. This has coincided with a change in medications. Pt sees neurologist Lorie Brown/Dev Garcia on November 15 for a followup visit. Pt recently has needed 24/7 help with all ADS including cutting up food and prn assist with eating. He was able to get up and go to the bathroom at night safely. At this point cannot manage anything without Nicole's physicial assist. He has been using a FWW upstairs where the bedroom is, 4WW on main level (tri level home). Nicole has tried to get him settled in the bottom level of home as she is fearful he will injure himself with the stairs but says he became extremely anxious and disoriented OT is also ordered, not available today. Will see pt tomorrow. Nicole confirms that most recently pt has been under care of [facility]. RN/OT/PT/SIDE LASTER TACK. They discontinued service mid September as pt no longer meeting /[facility] criteria. Marnie has attempted to help her mother with options and a couple of days ago filled out a [facility] application for home or extended care but did not understand that financial assets as well as income are counted in this process. Nicole today indicates that their assets are such that a spend down would be needed. She is provided with the [employer] Q&A August 2017 information. Discussed options of home, increased care/pvt pay and [facility] again vs short snf stay to see if pt is able to recover some of his functional abilities as his medications are changed and managed. Encouraged Nicole also to consider a dementia care facility after snf stay if indicated with idea of pvt and medicaid after spend down. Referral is given to [facility]. She will review and call Nicole on her cell to make appt to see her and pt tomorrow at the hospital. Senior Resource Guide 2018 is given to Nicole as well as support groups for Alz and Parkinson's in [place]. Spoke now with Rudy/Joann batista [facility] plan. Will fax directly to her on the weekend fax: [phone] and she will put snf request in system for followup by Rudy [facility] on Sunday (tomorrow). P: CM/DCP team to follow as per above. Original Note: DCP: assessment: case received, EMR reviewed and met with pt. Introduced self and role. Pt is 72 year old male who admitted yesterday afternoon to care of his PCP: Dr. Peña. Carries dx of Parkinson's with dementia. Neurology consult is pending tomorrow (Sunday), per Dr. Peña. Payer: [facility]. Pt was last here in Jun 2016. At that point he went home with family care and Hetal . Pt appeared alert. Said his would be in later today. States his daughter and her 2 children no longer live with them, they now live in [place] and daughter works. Says his Nicole is retired. Called Nicole/cell: [phone] and arranged to see her today at about 1230 when she visits. Will continue the assessment process. P: at this point, to be determined. CM DCP will continue to follow tomorrow.
--- NOTE | 2017-11-04 15:59 | PT.IIE ---
Current Diagnoses Hyperlipidemia, unspecified (11/03/17) Volume depletion, unspecified (11/03/17) Dementia in other diseases classified elsewhere without behavioral disturbance (11/03/17) Dysphagia, unspecified (11/03/17) Repeated falls (11/03/17) Disorientation, unspecified (11/03/17) Medical History (Last Updated 11/03/17 @ 17:12 by Hao Peña MD) Parkinson's disease dementia (Chronic) Hyperlipemia (Chronic) Multiple falls (Acute) Parkinson's disease (Chronic) Weakness generalized (Chronic) Dysphagia (Chronic) Physical Therapy Inpatient Evaluation/Re-Eval M1 PT/OT-IP Prior Functional Status Start: 11/04/17 15:47 Freq: Status: Active Protocol: Document 11/04/17 14:14 [facility] (Rec: 11/04/17 15:59 [facility] [id number]) Medical Review Prior Functional Status Medical History Reviewed Yes Mobility and Gait Modified indep with 4WW 1 month ago with rapid decline in the past month, nearly non- ambulatory. Social History Household Members spouse Living Arrangements House Number of Floors (Floors) 3 or More Floors Number of Stairs To Enter/Railing? 1 step entry with rails, 12 steps up/down indoors (split level home) with rails to access the home. Home Equipment Front Wheel Walker Four Wheel Walker M2 PT-IP Current Condition Start: 11/04/17 15:47 Freq: Status: Active Protocol: Document 11/04/17 14:14 RCC (Rec: 11/04/17 15:59 [facility] [id number]) Physical Therapy Current Condition Current Condition Evaluation Date 11/04/17 Treatment Diagnosis Complications with Parkinson's Disease, GLF, delerium, impaired gait M3 PT-IP Subjective Start: 11/04/17 15:47 Freq: Status: Active Protocol: Document 11/04/17 14:14 RCC (Rec: 11/04/17 15:59 [facility] [id number]) Subjective Physical Therapy Visit Type Type Initial Evaluation Visit Start Time 15:45 Visit Stop Time 14:14 Total Visit Minutes 29 Notes and daughter in room with CM during this session. Number of WATERWORKS OPERATOR Visits 0 Physical Therapy Visit Comments Patient Comments Pt notes that he basically lost all ability to do anything for himself. Therapy Pain Assessment Pain Present Pain Present Pain Reported Location Bilateral Shoulder Description Tender M4 PT-IP Mobility and Gait Start: 11/04/17 15:47 Freq: Status: Active Protocol: Document 11/04/17 14:14 RCC (Rec: 11/04/17 15:59 [facility] [id number]) PT-Bed Mobility Assessment Supine to Sit Supine to Sit Moderate Assistance 1 Person Assistance Sit to Supine Sit to Supine Contact Guard Assistance 1 Person Assistance Scooting Scooting to Edge of Bed Minimal Assistance PT-Transfer Assessment Sit to and From Stand Sit to and from Stand Maximum Assistance 1 Person Assistance Equipment Transfer Assistive Device Gait Belt Transfers Transfer Destination Bed Transfer Technique Stand Step Pivot Transfer Ability Level of Assist Maximum Assistance 1 Person Assistance Gait Assessment Gait Gait Assistance Required: Maximum Assistance 1 Person Assist Distance (Feet) (feet) 3 Assistive Devices Assistive Device Gait Belt Front Wheeled Walker Gait Deviations General Gait Pattern Ataxic Decreased Stride Length Decreased Feet Clearance Festinating Narrow Based Gait Factors Limiting Gait Function Factors Limiting Gait Function Decreased Activity Tolerance Decreased Strength Incoordination Poor Balance Poor Safety Awareness Comments Gait Comments Forward/backward gait with poor standing balance and posterior lean even with max cuing at the pelvis and chest. PT-Balance Assessment Sitting Balance and Reactions Static Sitting Balance Ability Fair Dynamic Sitting Balance Ability Fair Standing Balance and Reactions Static Standing Balance Ability Poor Dynamic Standing Balance Ability Poor Device Used FWW M5 PT-IP Objective Assessments Start: 11/04/17 15:47 Freq: Status: Active Protocol: Document 11/04/17 14:14 RCC (Rec: 11/04/17 15:59 [facility] [id number]) Gross Range of Motion Upper Extremity ROM Assessment Within Functional Limits Strength Lower Extremity Strength Hip 3/5 bilateral hip flexin Knee knee flex and extension 3+/5 bilaterally Ankle ankle DF 3+/5, PF 3/5 bilaterally Coordination Assessment Assessment Coordination Comments ataxic movements with LEs M6 PT-IP Treatment Start: 11/04/17 15:47 Freq: Status: Active Protocol: Document 11/04/17 14:14 RCC (Rec: 11/04/17 15:59 [facility] [id number]) Physical Therapy Treatment Education Education Provided Safety M7 PT-IP Assessment and Plan Start: 11/04/17 15:47 Freq: Status: Active Protocol: Document 11/04/17 14:14 RCC (Rec: 11/04/17 15:59 [facility] [id number]) PT Summary Assessment and Plan Potential Rehabilitation Potential Fair Status of Condition at Evaluation Evolving Summary Impairments Strength Balance Coordination Bed Mobility Transfers Gait Activity Tolerance Progress Towards Goals Slow Progress due to Medical Issues Assessment Summary Pt required assistance getting out of bed, and maximum assistance with standing and attempting gait. Pt with severe posterior lean which required max tactile cuing as well to prevent a fall posteriorly. Pt with festinating gait, and fatigues quickly, and is not safe to be out of bed without physical therapy at this point. The pt is well below his normal level of function, and is at high risk for falls and non- ambulatory at this time. Pt is not safe to return to prior living situation, as the burden of care is too high. Pt will greatly benefit from SNF rehabilitation upon d/c to promote a safe d/c, improve balance, gait, strength, safety, and increase functional independence. Goals Bed Mobility Goal Standby Assistance Transfer Goal Contact Guard Assistance Gait Goal Contact Guard Assistance Gait Distance 50 Days to Meet Goals 3 Frequency of Treatment Frequency Of Treatment Twice a Day Treatment Plan Physical Therapy Treatment Plan Bed Mobility Training Transfer Training Gait Training Therapeutic Exercise Balance Retraining Neuromuscular Re-ed Recommendations To Nursing Amount of Assist Needed 2 Person Assist Discharge Recommendations PT Discharge Recommendations SNF Rehab Provider Visit Care Team Role Provider Type Dexter Benson DO Emergency Provider Physician Specialty: Emergency Medicine Hao Peña MD Admit Provider Physician Attending Provider Family Provider Primary Care Provider Specialty: Family Practice
[2017-11-04] MEDS: CARBIDOPA-LEVODOPA 25/100 TABLET 2 EACH PO (21:30)
[2017-11-05] VITALS (9 sets, daily range): BP systolic 111–142; BP diastolic 67–88; PULSE 55–65; RESP 16–19; TEMP 36.2–37.2; O2SAT 95–98
[2017-11-05] MEDS: DEXTROSE 5%-0.9% NS 1,000 ML 100 ML IV ×3 (01:25→21:32)
--- NOTE | 2017-11-05 05:16 | PC.NURSE ---
Assumed care of pt from outgoing shift at 2300 6-10. pt asleep, rr regular. no distress at this time. bed in lowest, locked position . belongings and call light within reach. bed alarm on. side rails up x3 for pt safety. will continue to monitor pt for safety. 0130 update- assessment completed and charted, pt denies pain. pt alert and oriented. pt boosted in bed. denies pain., denies further needs at this time. will continue to monitor pt for safety.
[2017-11-05 06:40] LABS: Add Manual Diff / Slide Review NO; Basophils Percent Auto 0.3 % (0-2); Eosinophils Percent Auto 1.1 % (2-4); Hematocrit 36.9 % (41-53); Hemoglobin 12.5 g/dL (13.5-17.5); Lymphocytes Percent Auto 29.9 % (25-40); Mean Corpuscular HGB Conc 33.9 % (30-36); Mean Corpuscular Hemoglobin 30.4 PG (26-34); Mean Corpuscular Volume 89.5 fL (80-100); Monocytes Percent Auto 7.5 % (3-14); Neutrophils Absolute Auto 4700 /uL (3000-5900); Neutrophils Percent Auto 61.2 % (50-75); Platelet Count 123 X10^3/uL (150-400); Red Blood Cell Count 4.13 X10^6/uL (4.5-5.9); Red Cell Distribution Width 13.1 % (11.6-14.8); White Blood Cell Count 7.7 X10^3/uL (4.5-11.0)
[2017-11-05 06:48] LABS: Blood Urea Nitrogen 14 mg/dL (9-20); Calcium 8.1 mg/dL (8.4-10.2); Carbon Dioxide 27 mmol/L (22-32); Chloride 109 mmol/L (98-107); Estimated Glomerular Filt Rate > 60.0 mL/min (>60); Glucose 113 mg/dL (80-110); HEMOLYSIS < 15 (0-50); Potassium 3.5 mmol/L (3.4-5.1); Sodium 142 mmol/L (137-145)
[2017-11-05] MEDS: CARBIDOPA PO ×4 (06:50→17:57)
[2017-11-05] MEDS: [UNRECOGNIZED DRUG - OTHER] PO ×4 (06:50→17:57)
[2017-11-05] MEDS: LEVODOPA PO ×4 (06:50→17:57)
[2017-11-05] MEDS: ENOXAPARIN 40 MG/0.4 ML SYRINGE SUBCUT (09:48)
[2017-11-05] MEDS: SERTRALINE 50 MG TABLET 100 MG PO (09:48)
[2017-11-05] MEDS: ATORVASTATIN 20 MG TABLET 40 MG PO (09:48)
[2017-11-05] MEDS: RIVASTIGMINE 9.5 MG 9.5 EACH TD (09:48)
--- NOTE | 2017-11-05 09:58 | PT.IPTN ---
Current Diagnoses Hyperlipidemia, unspecified (11/03/17) Volume depletion, unspecified (11/03/17) Dementia in other diseases classified elsewhere without behavioral disturbance (11/03/17) Dysphagia, unspecified (11/03/17) Repeated falls (11/03/17) Disorientation, unspecified (11/03/17) Physical Therapy Treatment Note M2 PT-IP Current Condition Start: 11/04/17 15:47 Freq: Status: Active Protocol: Document 11/04/17 14:14 RCC (Rec: 11/04/17 15:59 RCC [id number]) Physical Therapy Current Condition Current Condition Evaluation Date 11/04/17 Treatment Diagnosis Complications with Parkinson's Disease, GLF, delerium, impaired gait M3 PT-IP Subjective Start: 11/04/17 15:47 Freq: Status: Active Protocol: Document 11/05/17 09:49 RS (Rec: 11/05/17 09:58 RS [id number]) Subjective Physical Therapy Visit Type Type Treatment Note Visit Start Time 09:29 Visit Stop Time 09:49 Total Visit Minutes 20 M4 PT-IP Mobility and Gait Start: 11/04/17 15:47 Freq: Status: Active Protocol: Document 11/04/17 14:14 RCC (Rec: 11/04/17 15:59 RCC [id number]) PT-Bed Mobility Assessment Supine to Sit Supine to Sit Moderate Assistance 1 Person Assistance Sit to Supine Sit to Supine Contact Guard Assistance 1 Person Assistance Scooting Scooting to Edge of Bed Minimal Assistance PT-Transfer Assessment Sit to and From Stand Sit to and from Stand Maximum Assistance 1 Person Assistance Equipment Transfer Assistive Device Gait Belt Transfers Transfer Destination Bed Transfer Technique Stand Step Pivot Transfer Ability Level of Assist Maximum Assistance 1 Person Assistance Gait Assessment Gait Gait Assistance Required: Maximum Assistance 1 Person Assist Distance (Feet) (feet) 3 Assistive Devices Assistive Device Gait Belt Front Wheeled Walker Gait Deviations General Gait Pattern Ataxic Decreased Stride Length Decreased Feet Clearance Festinating Narrow Based Gait Factors Limiting Gait Function Factors Limiting Gait Function Decreased Activity Tolerance Decreased Strength Incoordination Poor Balance Poor Safety Awareness Comments Gait Comments Forward/backward gait with poor standing balance and posterior lean even with max cuing at the pelvis and chest. PT-Balance Assessment Sitting Balance and Reactions Static Sitting Balance Ability Fair Dynamic Sitting Balance Ability Fair Standing Balance and Reactions Static Standing Balance Ability Poor Dynamic Standing Balance Ability Poor Device Used FWW M5 PT-IP Objective Assessments Start: 11/04/17 15:47 Freq: Status: Active Protocol: Document 11/04/17 14:14 RCC (Rec: 11/04/17 15:59 RCC [id number]) Gross Range of Motion Upper Extremity ROM Assessment Within Functional Limits Strength Lower Extremity Strength Hip 3/5 bilateral hip flexin Knee knee flex and extension 3+/5 bilaterally Ankle ankle DF 3+/5, PF 3/5 bilaterally Coordination Assessment Assessment Coordination Comments ataxic movements with LEs M6 PT-IP Treatment Start: 11/04/17 15:47 Freq: Status: Active Protocol: Document 11/05/17 09:49 RS (Rec: 11/05/17 09:58 RS [id number]) Physical Therapy Treatment Exercises Exercises Ankle Pumps Gluteal Sets Quad Sets Heel Slides Supine Hip Abduction Short Arc Quads M7 PT-IP Assessment and Plan Start: 11/04/17 15:47 Freq: Status: Active Protocol: Document 11/05/17 09:49 RS (Rec: 11/05/17 09:58 RS [id number]) PT Summary Assessment and Plan Summary Assessment Summary Pt able to participate in bed strengthening exercises without any unexpected issues. Pt still significantly below a safe level of function to return home, continue to recommend discharge to SNF rehab once medically ready.
--- NOTE | 2017-11-05 10:13 | PC.NURSE ---
Day shift: Pt alert and oriented to himself and place. After breakfast Pt very tired and somewhat difficult to understand his speach. Pt did wake up enough to take his morning meds and seems familiar with what he takes on a daily basis. VS taked w/ a BP of 111/53. HR 55. RR 16. No s/s of any deficits. Call light in reach. Reminded to not get OOB w/o help from staff.
--- NOTE | 2017-11-05 10:45 | PC.NURSE ---
Day shift: Pt OOB to BSC. Very unsteady. 2 person assist. He needs direction and total assistance when OOB. Small shuffling gait and agasin very unsteady. DISH MAKER remnains in room while Pt uses BSC.
--- NOTE | 2017-11-05 12:28 | CM.DPNOTE ---
DCP/continued: Reviewed chart. Placed call to Destiny at [facility] re: admit? Destiny reports that she plans to come do bedside assessment today. In addition, placed call to [facility] to find out who is assigned CM. Per Lizzette, at [facility] assigned CM is Sonia villegas# [phone]. P: Pending. Clinical faxed for SNF authorization to [facility] over the w/e. Destiny from [facility] coming today to do assessment on whether or not they can accept at time of d/c. TOÑO Cornelius
--- NOTE | 2017-11-05 12:58 | P.PN_ITS ---
Subjective Date Patient Seen: 11/05/17 Time Patient Seen: 12:51 Interval history: Seen with . He says he feels better but still seems to be moderately confused and per PT and nursing very unsteady and had high fall risk. In the past he has had some issues with dysphagia and aspiration but per it does not seem to be an issue at this time. Exam Vital Signs (past 8 hours): Vital Signs - 8 hr 3 11/05/17 06:00 11/05/17 09:00 11/05/17 10:16 Temperature 97.3 F L 97.2 F L Pulse Rate 55 L 55 L Respiratory Rate 19 16 Blood Pressure 130/79 H 111/67 Pulse Oximetry 96 97 95 Pulse Oximetry 95 Oxygen Delivery Method Room Air Oxygen Flow Rate 0 Narrative Exam Narrative: No obvious distress, confused, HEENT normocephalic although little tender on the occiput. Neck benign chest is clear heart has a regular rate and rhythm without murmur abdomen is soft nontender nondistended normal active bowel tones extremities benign neurologically a market tremor in left somewhat less and right upper extremities. Moderately confused. Objective Labs Result Diagrams: 11/05/17 05:57 11/05/17 05:57 Labs: Laboratory Results - last 24 hr 11/05/17 11/05/17 05:57 05:57 WBC 7.7 RBC 4.13 L Hgb 12.5 L Hct 36.9 L MCV 89.5 MCH 30.4 MCHC 33.9 RDW 13.1 Plt Count 123 L Neut % (Auto) 61.2 Lymph % (Auto) 29.9 [place] % (Auto) 7.5 Eos % (Auto) 1.1 L Baso % (Auto) 0.3 Neut # (Auto) 4700 Sodium 142 Potassium 3.5 Chloride 109 H Carbon Dioxide 27 BUN 14 Creatinine 0.70 Estimated GFR > 60.0 BUN/Creatinine Ratio 20.0 Glucose 113 H Calcium 8.1 L Assessment & Plan (1) Acute delirium: Problem details: Some improvement but Hallucinations continue, remains moderately confused, moderate risk of injury, but overall I feel he is developing dementia. I feel he needs ongoing observation, and will see how OT and PT find him and their evaluations. Current visit: Yes Status: Acute (2) Parkinson's disease dementia: Problem details: My suspicion is this problem has been evolving over the past several months and is contributing to some of the above issues. Current visit: Yes Status: Chronic (3) Volume depletion: Problem details: Improved with IV fluids. Current visit: Yes Status: Acute (4) Multiple falls: Problem details: Related to above this has been an issue for a while but nothing quite so persistent or intense and with considerable risk of harm. Seems to be an ataxia issue as well as a judgment issue. Current visit: Yes Status: Acute (5) Weakness generalized: Problem details: PTE does indicate significant weakness and fall risk. Treatment is underway Current visit: Yes Status: Chronic (6) Dysphagia: Problem details: This was a significant issue in his last hospitalization so not clear that he is still having this issue but will evaluate for that as well. So far no clear evidence of issues at this time. Current visit: Yes Status: Chronic Plan: Assessment/Plan Narrative: Will continue close monitoring, IV fluids, PT and OT. Feeling needs to be a bit stronger before transfer and then SNF after that. Quality VTE Deep Vein Thrombosis/Pulmonary Embolism Present on Admission: No
--- NOTE | 2017-11-05 16:41 | PT.IPTN ---
Current Diagnoses Hyperlipidemia, unspecified (11/03/17) Volume depletion, unspecified (11/03/17) Dementia in other diseases classified elsewhere without behavioral disturbance (11/03/17) Parkinson's disease (11/03/17) Dysphagia, unspecified (11/03/17) Repeated falls (11/03/17) Disorientation, unspecified (11/03/17) Weakness (11/03/17) Physical Therapy Treatment Note M2 PT-IP Current Condition Start: 11/04/17 15:47 Freq: Status: Active Protocol: Document 11/04/17 14:14 RCC (Rec: 11/04/17 15:59 RCC [id number]) Physical Therapy Current Condition Current Condition Evaluation Date 11/04/17 Treatment Diagnosis Complications with Parkinson's Disease, GLF, delerium, impaired gait M3 PT-IP Subjective Start: 11/04/17 15:47 Freq: Status: Active Protocol: Document 11/05/17 13:30 CLB (Rec: 11/05/17 16:41 CLB [id number]) Subjective Physical Therapy Visit Type Type Treatment Note Visit Start Time 13:30 Visit Stop Time 14:11 Total Visit Minutes 41 Number of FUNDRAISING SALE REPRESENTATIVE Visits 1 Physical Therapy Visit Comments Patient Comments Pt willing to try and ambulate with/FUNDRAISING SALE REPRESENTATIVE and OT M4 PT-IP Mobility and Gait Start: 11/04/17 15:47 Freq: Status: Active Protocol: Document 11/05/17 13:30 CLB (Rec: 11/05/17 16:41 CLB [id number]) PT-Bed Mobility Assessment Rolling Type of Rolling Roll to Right Supine to Sit Supine to Sit Maximum Assistance 1 Person Assistance Scooting Scooting to Edge of Bed Moderate Assistance PT-Transfer Assessment Sit to and From Stand Sit to and from Stand Moderate Assistance 2 Person Assistance Equipment Transfer Assistive Device Gait Belt Front Wheeled Walker Transfers Transfer Destination Chair Transfer Technique Stand Step Pivot Transfer Ability Level of Assist Maximum Assistance 1 Person Assistance Comments Mobility Comments Pt needs assist with all mobility due to his inability to follow simple commands for safety and retropulsion. Gait Assessment Gait Gait Assistance Required: Moderate Assistance 2 Person Assist Distance (Feet) (feet) 12 Assistive Devices Assistive Device Gait Belt Front Wheeled Walker Gait Deviations General Gait Pattern Ataxic Decreased Stride Length Decreased Feet Clearance Festinating Narrow Based Gait Factors Limiting Gait Function Factors Limiting Gait Function Decreased Activity Tolerance Decreased Strength Incoordination Poor Balance Poor Safety Awareness Comments Gait Comments Pt improved with gait distance with chair follow and assist with IV pole. Pt continues to need increased assistance due to stand balance and posterior lean. M5 PT-IP Objective Assessments Start: 11/04/17 15:47 Freq: Status: Active Protocol: Document 11/04/17 14:14 RCC (Rec: 11/04/17 15:59 RCC [id number]) Gross Range of Motion Upper Extremity ROM Assessment Within Functional Limits Strength Lower Extremity Strength Hip 3/5 bilateral hip flexin Knee knee flex and extension 3+/5 bilaterally Ankle ankle DF 3+/5, PF 3/5 bilaterally Coordination Assessment Assessment Coordination Comments ataxic movements with LEs M6 PT-IP Treatment Start: 11/04/17 15:47 Freq: Status: Active Protocol: Document 11/05/17 09:49 RS (Rec: 11/05/17 09:58 RS [id number]) Physical Therapy Treatment Exercises Exercises Ankle Pumps Gluteal Sets Quad Sets Heel Slides Supine Hip Abduction Short Arc Quads M7 PT-IP Assessment and Plan Start: 11/04/17 15:47 Freq: Status: Active Protocol: Document 11/05/17 13:30 CLB (Rec: 11/05/17 16:41 CLB [id number]) PT Summary Assessment and Plan Summary Impairments Strength Balance Coordination Bed Mobility Transfers Gait Activity Tolerance Progress Towards Goals Slow Progress due to Medical Issues Assessment Summary Pt able to ambulate 10ft x2 with a chair follow and Mod A x2. Pt needs Max verbal and tactile cues as pt has hard time following simple direction which decreases his safety. Pt is unable to function safely at home and would benefit from SNF rehab before returning home. Goals Days to Meet Goals 3 Frequency of Treatment Frequency Of Treatment Twice a Day Treatment Plan Physical Therapy Treatment Plan Bed Mobility Training Transfer Training Gait Training Therapeutic Exercise Balance Retraining Neuromuscular Re-ed Recommendations To Nursing Amount of Assist Needed 2 Person Assist Discharge Recommendations PT Discharge Recommendations SNF Rehab
--- NOTE | 2017-11-05 17:37 | OT.IP.TRT ---
Current Diagnoses Hyperlipidemia, unspecified (11/03/17) Volume depletion, unspecified (11/03/17) Dementia in other diseases classified elsewhere without behavioral disturbance (11/03/17) Parkinson's disease (11/03/17) Dysphagia, unspecified (11/03/17) Repeated falls (11/03/17) Disorientation, unspecified (11/03/17) Weakness (11/03/17) Occupational Therapy Treatment Note M2 OT-IP Current Condition Start: 11/05/17 17:13 Freq: Status: Active Protocol: Document 11/05/17 15:30 [facility] (Rec: 11/05/17 17:37 [facility] [id number]) Occupational Therapy Current Condition Current Condition Evaluation Date 11/05/17 Treatment Diagnosis Complications of Parkinson's and GLF M3 OT- IP Subjective and Pain Start: 11/05/17 17:13 Freq: Status: Active Protocol: Document 11/05/17 15:30 [facility] (Rec: 11/05/17 17:37 [facility] [id number]) OT- Subjective Occupational Therapy Visit Type Type Initial Evaluation Visit Start Time 15:30 Visit Stop Time 16:30 Total Visit Minutes 60 Occupational Therapy Visit Comments Patient Comments Pt cooperative. Patient/Caregiver Goals Pt states wants to get stronger and to be able to do more for himself. OT Pain Assessment Pain When Pain Assessed At Rest Pain Present Pain Present Pain Reported Location Back Intensity 7 Scale Used Numeric (1 - 10) M4 OT- IP ADL's Start: 11/05/17 17:13 Freq: Status: Active Protocol: Document 11/05/17 15:30 [facility] (Rec: 11/05/17 17:37 [facility] [id number]) OT [id number] Comments OT Self-Feeding Comments Pt able to drink form water bottle. Pt states at times pockets his food on the left side of his mouth, noted facial droop on left side. Nursing notified and suggested pt to have STRETCHING MACHINE OPERATOR eval and treat . Pt's son states pt has had STRETCHING MACHINE OPERATOR in the past and texted his mom, pt's , and she would like pt to have STRETCHING MACHINE OPERATOR as well. OT ADL-Grooming General Evaluation Grooming Ability Moderate Assistance Areas Needing Assistance Retrieving/Set-up of Grooming Items Combing/Brushing Hair Comments OT Grooming Comments Pt able to sit at edge of bed and wash his face after set-up and needed assist to comb the back of his hair. OT ADL-Dressing General Eval Upper Body Dressing Ability Moderate Assistance Lower Body Dressing Ability Total Assistance Comments OT Dressing Comments Pt due to Parkinson's , ataxia , needing MAX vc and MENTASTA assist will need extensive assist for all dressing needs at this time. OT ADL-Toileting General Evaluation Toileting Ability Total Assistance Areas Needing Assistance Empty Catheter or Colostomy Manage Clothing Perform Perineal Hygiene Devices Toileting Assistive Devices Urinal Comments OT Toileting Comments At this time pt needing assist to stand and to use urinal or BSC with assist ofr two persons. OT ADL-Bathing Comments OT Bathing Comments Total assist at this time. M6 OT- IP Functional Cognition Start: 11/05/17 17:13 Freq: Status: Active Protocol: Document 11/05/17 15:30 [facility] (Rec: 11/05/17 17:37 [facility] [id number]) Cognitive Factors Limiting Selfcare Function Cognitive Ability Level of Alertness Alert Confusional State Patient Orientation Name Place Situation Attention Span Ability Capable of Focused Attention Unable to Sustain Attention Ability to Follow Commands Able to Follow One Step Commands with Increased Time Able to Follow One Step Commands with Repetition Memory Description Short Term Impaired Safety Awareness Underestimates Need for Assistance Cognitive Comments Cognitive Assessment Comments Pt needing MAX A and MENTASTA assist for safety during transfers, sit to stand,etc.. OT- Vision and Hearing OT- Hearing Assessment OT- Hearing Assessment WFL OT- Vision Assessment Visual Acuity Glasses For Reading Vision Assessment Comments Intact for scanning, however when asked to find the clock unable to locate clock on the left side of the wall. M7 OT- IP Mobility and Balance Start: 11/05/17 17:13 Freq: Status: Active Protocol: Document 11/05/17 15:30 [facility] (Rec: 11/05/17 17:37 [facility] [id number]) OT- Bed Mobility Assessment Rolling Type of Rolling Roll to Right Level of Assistance Maximum Assistance 1 Person Assistance Supine to Sit Supine to Sit Assist Maximum Assistance 1 Person Assistance Scooting Scooting to Edge of Bed Moderate Assistance OT-Transfer Assessment Sit to and From Stand Sit to and from Stand Moderate Assistance 2 Person Assistance Transfers Transfer Ability Moderate Assistance 2 Person Assistance Technique Transfer Destination Chair Transfer Technique Stand Step Pivot Devices Transfer Assistive Devices Front Wheeled Walker Comments Mobility Comments Use of wide bariatric FWW, as extra weight of FWW was helpful to pt. Pt tends to lean into posterior tilt and has difficulty to get weight over his feet, in addition pt tends to keep his feet very close together and needs cue to keep his feet apart. 2 person transfer for safety as pt is a high fall risk. OT- Balance Assessment Sitting Balance and Reactions Static Sitting Balance Ability Normal Dynamic Sitting Balance Ability Fair Standing Balance and Reactions Static Standing Balance Ability Poor Dynamic Standing Balance Ability Poor M8 OT- IP Objective Assessments Start: 11/05/17 17:13 Freq: Status: Active Protocol: Document 11/05/17 15:30 [facility] (Rec: 11/05/17 17:37 [facility] [id number]) OT Gross Range of Motion Upper Extremity Range of Motion ROM Impairments WFL for ADl needs for AROM. OT Strength Comments Strength Comments 4/5 BUE strength. OT-Muscle Tone Assessment Comments Muscle Tone Comments Ataxic movements for pt and needing MENTASTA assist to help place hands on the FWW, armrest of recliner,etc.... M9 OT- IP Assessment and Plan Start: 11/05/17 17:13 Freq: Status: Active Protocol: Document 11/05/17 15:30 [facility] (Rec: 11/05/17 17:37 [facility] [id number]) OT Summary Assessment and Plan Potential Rehabilitation Potential Good Analytic Complexity at Evaluation Moderate Summary OT Impairments Pain Range of Motion Strength Balance Coordination Functional Cognition Functional Mobility Self-Feeding Grooming Dressing Toileting Bathing Toilet Transfers Shower Transfers Progress Towards Goals Slow Progress due to Pain Slow Progress due to Medical Issues Slow Progress due to Activity Tolerance Slow Progress due to Cognition Assessment Summary Pt has a fall with complications of Parkinson's, now needing extensive assist x 2 persons for all needs of ADl's and functional mobility. Pt tends to lean into posterior tilt while sitting, standing, has poor balance and awareness of midline. Pt would benefit from skilled rehab as current level of care too great for to assist at home. Goals Self-Feeding Goal Standby Assistance Grooming Goal Minimal Assistance Dressing Goal Moderate Assistance Toileting Goal Moderate Assistance Bathing Goal Moderate Assistance Toilet Transfer Goal Minimal Assistance Shower Transfer Goal Moderate Assistance Patient/Caregiver Education Goal Caregiver Independent Assisting Patient Days to Meet Goals 7 Frequency of Treatment Frequency Of Treatment Once a Day Treatment Plan OT Treatment Plan ADL Training Functional Cognition Training Functional Mobility Patient/Family Education Discharge Planning Other Treatment Recommendations and Next Attempt pt to transfer to [facility] Treatment Focus with FWW or assess self- feeding. Discharge Recommendations OT Discharge Recommendations SNF Rehab Home Equipment Needs BSC
--- NOTE | 2017-11-05 22:44 | PC.NURSE ---
Evening Shift Note A&Ox2, confused at times, easily redirected, non-impulsive. VSS, 98% on RA. Incontinent of urine at times, no incident this shift. Using urinal at bedside or up to bathroom. Hx of falls, up w/ 2p assist, gait belt, FWW, no coordination at times and requires clear direction of movements. Family requesting COLLECTION ADVISOR evaluation, per family issue in past w/ pocketing, no issue w/ this RN, passed RN analilia vinson. Bed alarm on. L H PIV w/ D5NS @ 100ml/hr.
[2017-11-06] VITALS (9 sets, daily range): BP systolic 124–151; BP diastolic 74–86; PULSE 54–61; RESP 15–20; TEMP 36.4–37.7; O2SAT 92–97
[2017-11-06] MEDS: CARBIDOPA PO ×6 (04:00→21:30)
[2017-11-06] MEDS: [UNRECOGNIZED DRUG - OTHER] PO ×6 (04:00→21:30)
[2017-11-06] MEDS: LEVODOPA PO ×6 (04:00→21:30)
[2017-11-06] MEDS: PANTOPRAZOLE 20 MG TABLET PO (06:32)
[2017-11-06 06:34] LABS: Add Manual Diff / Slide Review NO; Basophils Percent Auto 0.4 % (0-2); Eosinophils Percent Auto 1.9 % (2-4); Hematocrit 37.6 % (41-53); Hemoglobin 12.9 g/dL (13.5-17.5); Lymphocytes Percent Auto 29.6 % (25-40); Mean Corpuscular HGB Conc 34.3 % (30-36); Mean Corpuscular Hemoglobin 30.6 PG (26-34); Mean Corpuscular Volume 89.2 fL (80-100); Monocytes Percent Auto 6.9 % (3-14); Neutrophils Absolute Auto 4900 /uL (3000-5900); Neutrophils Percent Auto 61.2 % (50-75); Platelet Count 123 X10^3/uL (150-400); Red Blood Cell Count 4.22 X10^6/uL (4.5-5.9); Red Cell Distribution Width 12.9 % (11.6-14.8); White Blood Cell Count 8.1 X10^3/uL (4.5-11.0)
[2017-11-06 06:36] LABS: BUN Creatinine Ratio 12.9 (6-22); Blood Urea Nitrogen 9 mg/dL (9-20); Calcium 8.2 mg/dL (8.4-10.2); Carbon Dioxide 28 mmol/L (22-32); Chloride 107 mmol/L (98-107); Estimated Glomerular Filt Rate > 60.0 mL/min (>60); Glucose 108 mg/dL (80-110); HEMOLYSIS < 15 (0-50); Potassium 3.5 mmol/L (3.4-5.1); Sodium 142 mmol/L (137-145)
[2017-11-06] MEDS: DEXTROSE 5%-0.9% NS 1,000 ML 100 ML IV (08:08)
--- NOTE | 2017-11-06 08:53 | PM.PN.1 ---
Subjective Date Patient Seen: 11/06/17 Time Patient Seen: 08:53 Interval history: Combination of delirium dementia Parkinson's weakness and severe falling on a neurologic basis. Patient been quite confused and dehydrated as well with his admission at this point I think he is euvolemic and caught up with his hydration lot of urine output. Seems slightly less confused related cognitive changes. Still very very poorly balanced needs lots of help the although this waxes and wanes Hink is a component of his dementia some medication delirium like effect and some Parkinson's related cognitive changes Exam Vital Signs (past 8 hours): Vital Signs - 8 hr 11/06/17 04:38 11/06/17 07:49 11/06/17 08:34 Temperature 97.7 F 97.8 F Pulse Rate 54 L 54 L Respiratory Rate 15 18 Blood Pressure 145/82 H 141/86 H Pulse Oximetry 94 96 97 Pulse Oximetry 97 Oxygen Delivery Method Room Air Oxygen Flow Rate 0 Narrative Exam Narrative: Patient is sitting in bed answering questions clearly. Masked faces. Tremor most prominent on left side PERRLA EOMs intact. Neck without mass. Lungs clear. Heart shows regular rate and rhythm without murmur or edema. Abdomen soft nontender no hepatosplenomegaly. Back without any lesions. Neuro shows patient to be a little confused definite tremor left side predominant consistent with Parkinson's. Slight fuzziness of cognition and slowing of speech. Very poor balance with standing up. Objective Labs Result Diagrams: 11/06/17 05:35 11/06/17 05:35 Labs: Laboratory Results - last 24 hr 11/06/17 11/06/17 05:35 05:35 WBC 8.1 RBC 4.22 L Hgb 12.9 L Hct 37.6 L MCV 89.2 MCH 30.6 MCHC 34.3 RDW 12.9 Plt Count 123 L Neut % (Auto) 61.2 Lymph % (Auto) 29.6 [place] % (Auto) 6.9 Eos % (Auto) 1.9 L Baso % (Auto) 0.4 Neut # (Auto) 4900 Sodium 142 Potassium 3.5 Chloride 107 Carbon Dioxide 28 BUN 9 Creatinine 0.70 Estimated GFR > 60.0 BUN/Creatinine Ratio 12.9 Glucose 108 Calcium 8.2 L Assessment & Plan Plan: Assessment/Plan Narrative: Assessment 1. Dementia with component of delirium probably secondary to Parkinson's and medications and a combination of dehydration. This seems to be slowly improving will decrease IV fluids continue Parkinson's medications and monitor of fluctuations in cognition. Assessment 2. Dementia I think this is a combination of some impact of Parkinson's on cognitive function plus probably also some impact from his medications. Has not had a medication change lately will continue with current doses he Assessment 3. Weakness patient has fairly significant weakness still a danger for any standing without significant support. This is been leading to a number of falls and the patient at great risk from this and at this point in time The patient has elevated lipids stable at this point and not needing any intervention Assessment 6 falls think these are related to combination of weakness prior dehydration and his impairment progressing from his Parkinson's. Will continue current [facility] rehab physical therapy occupational therapy anticipate custodial requirements after this admission. Quality VTE Deep Vein Thrombosis/Pulmonary Embolism Present on Admission: No
--- NOTE | 2017-11-06 09:00 | P.PN_ITS ---
Subjective Date Patient Seen: 11/06/17 Time Patient Seen: 08:53 Interval history: Combination of delirium dementia Parkinson's weakness and severe falling on a neurologic basis. Patient been quite confused and dehydrated as well with his admission at this point I think he is euvolemic and caught up with his hydration lot of urine output. Seems slightly less confused related cognitive changes. Still very very poorly balanced needs lots of help the although this waxes and wanes Hink is a component of his dementia some medication delirium like effect and some Parkinson's related cognitive changes Exam Vital Signs (past 8 hours): Vital Signs - 8 hr 3 11/06/17 04:38 11/06/17 07:49 11/06/17 08:34 Temperature 97.7 F 97.8 F Pulse Rate 54 L 54 L Respiratory Rate 15 18 Blood Pressure 145/82 H 141/86 H Pulse Oximetry 94 96 97 Pulse Oximetry 97 Oxygen Delivery Method Room Air Oxygen Flow Rate 0 Narrative Exam Narrative: Patient is sitting in bed answering questions clearly. Masked faces. Tremor most prominent on left side PERRLA EOMs intact. Neck without mass. Lungs clear. Heart shows regular rate and rhythm without murmur or edema. Abdomen soft nontender no hepatosplenomegaly. Back without any lesions. Neuro shows patient to be a little confused definite tremor left side predominant consistent with Parkinson's. Slight fuzziness of cognition and slowing of speech. Very poor balance with standing up. Objective Labs Result Diagrams: 11/06/17 05:35 11/06/17 05:35 Labs: Laboratory Results - last 24 hr 11/06/17 11/06/17 05:35 05:35 WBC 8.1 RBC 4.22 L Hgb 12.9 L Hct 37.6 L MCV 89.2 MCH 30.6 MCHC 34.3 RDW 12.9 Plt Count 123 L Neut % (Auto) 61.2 Lymph % (Auto) 29.6 [place] % (Auto) 6.9 Eos % (Auto) 1.9 L Baso % (Auto) 0.4 Neut # (Auto) 4900 Sodium 142 Potassium 3.5 Chloride 107 Carbon Dioxide 28 BUN 9 Creatinine 0.70 Estimated GFR > 60.0 BUN/Creatinine Ratio 12.9 Glucose 108 Calcium 8.2 L Assessment & Plan Plan: Assessment/Plan Narrative: Assessment 1. Dementia with component of delirium probably secondary to Parkinson's and medications and a combination of dehydration. This seems to be slowly improving will decrease IV fluids continue Parkinson's medications and monitor of fluctuations in cognition. Assessment 2. Dementia I think this is a combination of some impact of Parkinson's on cognitive function plus probably also some impact from his medications. Has not had a medication change lately will continue with current doses he Assessment 3. Weakness patient has fairly significant weakness still a danger for any standing without significant support. This is been leading to a number of falls and the patient at great risk from this and at this point in time The patient has elevated lipids stable at this point and not needing any intervention Assessment 6 falls think these are related to combination of weakness prior dehydration and his impairment progressing from his Parkinson's. Will continue current [facility] rehab physical therapy occupational therapy anticipate penitentiary requirements after this admission. Quality VTE Deep Vein Thrombosis/Pulmonary Embolism Present on Admission: No
[2017-11-06] MEDS: ATORVASTATIN 20 MG TABLET 40 MG PO (09:01)
[2017-11-06] MEDS: ENOXAPARIN 40 MG/0.4 ML SYRINGE SUBCUT (09:02)
[2017-11-06] MEDS: RIVASTIGMINE 9.5 MG 9.5 EACH TD (09:02)
[2017-11-06] MEDS: SERTRALINE 50 MG TABLET 100 MG PO (09:03)
--- NOTE | 2017-11-06 13:49 | CM.DPC ---
DCP Cont: Per Sonia at [facility], they received the updated clinicals and pt is approved for SNF rehab, likely a couple weeks, and SW updated that pt likely ready for d/c to [facility] tomorrow if stable. SW called [facility] Destiny and updated on [facility] auth and likely d/c tomorrow. Destiny had spoken with pt's spouse earlier and also encouraged long-term care for the near future and planning for needs after SNF. YOEL met bedside with pt, spouse, PT, and OT and quickly updated on [facility] SNF auth and pt and spouse very relieved. Plan: SW to follow for likely pt d/c to [facility] tomorrow if medically stable. TOÑO Roberts
--- NOTE | 2017-11-06 14:29 | PT.IPTN ---
Current Diagnoses Hyperlipidemia, unspecified (11/03/17) Volume depletion, unspecified (11/03/17) Dementia in other diseases classified elsewhere without behavioral disturbance (11/03/17) Parkinson's disease (11/03/17) Dysphagia, unspecified (11/03/17) Repeated falls (11/03/17) Disorientation, unspecified (11/03/17) Weakness (11/03/17) Physical Therapy Treatment Note M2 PT-IP Current Condition Start: 11/04/17 15:47 Freq: Status: Active Protocol: Document 11/04/17 14:14 RCC (Rec: 11/04/17 15:59 RCC [id number]) Physical Therapy Current Condition Current Condition Evaluation Date 11/04/17 Treatment Diagnosis Complications with Parkinson's Disease, GLF, delerium, impaired gait M3 PT-IP Subjective Start: 11/04/17 15:47 Freq: Status: Active Protocol: Document 11/06/17 13:35 CLB (Rec: 11/06/17 14:29 CLB [email or web address]) Subjective Physical Therapy Visit Type Type Treatment Note Visit Start Time 13:35 Visit Stop Time 14:09 Total Visit Minutes 34 Number of CAR WHACKER Visits 2 Physical Therapy Visit Comments Patient Comments Pt willing to try and ambulate with/CAR WHACKER and OT after using BSC. M4 PT-IP Mobility and Gait Start: 11/04/17 15:47 Freq: Status: Active Protocol: Document 11/06/17 13:35 CLB (Rec: 11/06/17 14:29 CLB [id number]) PT-Bed Mobility Assessment Rolling Type of Rolling Roll to Right Supine to Sit Supine to Sit Minimal Assistance 1 Person Assistance Sit to Supine Sit to Supine Contact Guard Assistance 2 Person Assistance Scooting Scooting to Edge of Bed Minimal Assistance PT-Transfer Assessment Sit to and From Stand Sit to and from Stand Minimal Assistance 2 Person Assistance Equipment Transfer Assistive Device Gait Belt Front Wheeled Walker Transfers Transfer Destination Chair Transfer Technique Stand Step Pivot Transfer Ability Level of Assist Minimal Assistance 2 Person Assistance Comments Mobility Comments Pt improving with mobility needing less assist but continues to need verbal and tactile cues and has posterior lean especially when stepping backwards towards chair or BSC. Gait Assessment Gait Gait Assistance Required: Minimum Assistance 2 Person Assist Distance (Feet) (feet) 30 Factors Limiting Gait Function Factors Limiting Gait Function Decreased Activity Tolerance Decreased Strength Incoordination Poor Balance Poor Safety Awareness Comments Gait Comments Pt ambulated 10ft x3 with chair follow. Pt does well when counting in rythm while he steps, 1,2,3 etc. M5 PT-IP Objective Assessments Start: 11/04/17 15:47 Freq: Status: Active Protocol: Document 11/04/17 14:14 RCC (Rec: 11/04/17 15:59 RCC [id number]) Gross Range of Motion Upper Extremity ROM Assessment Within Functional Limits Strength Lower Extremity Strength Hip 3/5 bilateral hip flexin Knee knee flex and extension 3+/5 bilaterally Ankle ankle DF 3+/5, PF 3/5 bilaterally Coordination Assessment Assessment Coordination Comments ataxic movements with LEs M6 PT-IP Treatment Start: 11/04/17 15:47 Freq: Status: Active Protocol: Document 11/05/17 09:49 RS (Rec: 11/05/17 09:58 RS [id number]) Physical Therapy Treatment Exercises Exercises Ankle Pumps Gluteal Sets Quad Sets Heel Slides Supine Hip Abduction Short Arc Quads M7 PT-IP Assessment and Plan Start: 11/04/17 15:47 Freq: Status: Active Protocol: Document 11/06/17 13:35 CLB (Rec: 11/06/17 14:29 CLB [email or web address]) PT Summary Assessment and Plan Potential Rehabilitation Potential Fair Status of Condition at Evaluation Evolving Summary Impairments Strength Balance Coordination Bed Mobility Transfers Gait Activity Tolerance Progress Towards Goals Slow Progress due to Medical Issues Assessment Summary Pt does better with basic directions such as stand-up or sit down. He then automatically puts hand on arm of chair and stands. He is confused if you ask him to place arms on the chair. Counting in rythm helped pt with walking this session. Pt continues to need increased assist and would benefit from skilled rehab to increase strengthening and endurance before returnig home. Goals Bed Mobility Goal Standby Assistance Transfer Goal Contact Guard Assistance Gait Goal Contact Guard Assistance Gait Distance 50 Days to Meet Goals 3 Frequency of Treatment Frequency Of Treatment Twice a Day Treatment Plan Physical Therapy Treatment Plan Bed Mobility Training Transfer Training Gait Training Therapeutic Exercise Balance Retraining Neuromuscular Re-ed Recommendations To Nursing Amount of Assist Needed 2 Person Assist Discharge Recommendations PT Discharge Recommendations SNF Rehab
--- NOTE | 2017-11-06 15:47 | OT.IP.TRT ---
Current Diagnoses Hyperlipidemia, unspecified (11/03/17) Volume depletion, unspecified (11/03/17) Dementia in other diseases classified elsewhere without behavioral disturbance (11/03/17) Parkinson's disease (11/03/17) Dysphagia, unspecified (11/03/17) Repeated falls (11/03/17) Disorientation, unspecified (11/03/17) Weakness (11/03/17) Occupational Therapy Treatment Note M2 OT-IP Current Condition Start: 11/05/17 17:13 Freq: Status: Active Protocol: Document 11/05/17 15:30 [facility] (Rec: 11/05/17 17:37 [facility] [id number]) Occupational Therapy Current Condition Current Condition Evaluation Date 11/05/17 Treatment Diagnosis Complications of Parkinson's and GLF M3 OT- IP Subjective and Pain Start: 11/05/17 17:13 Freq: Status: Active Protocol: Document 11/06/17 14:09 PJM (Rec: 11/06/17 15:47 PJM [id number]) OT- Subjective Occupational Therapy Visit Type Type Treatment Note Visit Start Time 13:25 Visit Stop Time 14:09 Total Visit Minutes 44 Occupational Therapy Visit Comments Patient Comments I think I have to use the bathroom. Patient/Caregiver Goals to go home OT Pain Assessment Pain When Pain Assessed After Treatment Pain Present Pain Present Denied Pain M4 OT- IP ADL's Start: 11/05/17 17:13 Freq: Status: Active Protocol: Document 11/06/17 14:09 PJM (Rec: 11/06/17 15:47 PJM [id number]) OT ILI-Qryc-Psdrbga General Evaluation Self-Feeding Ability Independent Areas Needing Assistance Cutting Food Opening Containers Comments OT Self-Feeding Comments Pt dislikes hospital food with poor appetite for lunch. Pt able to use eating utensil with no tremors for lunch meal but primarily drinking Ensure . Pt indep opening and closing screw off top and pouring liquid into cup. Pt indep drinking from cup with straw. OT ADL-Toileting General Evaluation Toileting Ability Total Assistance Areas Needing Assistance Manage Clothing Perform Perineal Hygiene Devices Toileting Assistive Devices Commode M6 OT- IP Functional Cognition Start: 11/05/17 17:13 Freq: Status: Active Protocol: Document 11/06/17 14:09 PJM (Rec: 11/06/17 15:47 PJM [id number]) Cognitive Factors Limiting Selfcare Function Cognitive Ability Level of Alertness Alert Attention Span Ability Capable of Focused Attention Ability to Follow Commands Able to Follow One Step Commands with Increased Time Able to Follow One Step Commands with Repetition Cognitive Comments Cognitive Assessment Comments Pt responds best to short one step subcortical commands that elicit an automatic response, e.g Stand upand Sit down. Pt confused by multistep commands. Slowed speed of processing noted. Conversation mildly confused at times. M7 OT- IP Mobility and Balance Start: 11/05/17 17:13 Freq: Status: Active Protocol: Document 11/06/17 14:09 PJM (Rec: 11/06/17 15:47 PJM [id number]) OT- Bed Mobility Assessment Supine to Sit Supine to Sit Assist Minimal Assistance 1 Person Assistance Head of Bed Elevated Scooting Scooting to Edge of Bed Minimal Assistance OT-Transfer Assessment Sit to and From Stand Sit to and from Stand Minimal Assistance 2 Person Assistance Transfers Transfer Ability Moderate Assistance 2 Person Assistance Technique Transfer Destination Bedside Commode Chair Transfer Technique Stand Step Pivot Devices Transfer Assistive Devices Gait Belt Front Wheeled Walker Comments Mobility Comments Pt has significant retropulsion when backing up and sometimes when first arising. Pt unable to reach back for low arm of chair. Tends to fall backwards into chair. Impaired motor planning noted. OT- Gait Assessment Gait Gait Assistance Required: Moderate Assistance 2 Person Assist Assistive Devices Assistive Device Gait Belt Front Wheeled Walker Comments Gait Ability Comments 2 person assist for safety with following with chair OT- Balance Assessment Sitting Balance and Reactions Static Sitting Balance Ability Fair Dynamic Sitting Balance Ability Poor Standing Balance and Reactions Static Standing Balance Ability Poor Dynamic Standing Balance Ability Poor Comments Other Balance Tests/Deviations/Treatment Pt needs verbal cues for : proper hand placement on FWW. M8 OT- IP Objective Assessments Start: 11/05/17 17:13 Freq: Status: Active Protocol: Document 11/05/17 15:30 CCC (Rec: 11/05/17 17:37 CCC [id number]) OT Gross Range of Motion Upper Extremity Range of Motion ROM Impairments WFL for ADl needs for AROM. OT Strength Comments Strength Comments 4/5 BUE strength. OT-Muscle Tone Assessment Comments Muscle Tone Comments Ataxic movements for pt and needing [place] assist to help place hands on the FWW, armrest of recliner,etc.... M9 OT- IP Assessment and Plan Start: 11/05/17 17:13 Freq: Status: Active Protocol: Document 11/06/17 14:09 PJM (Rec: 11/06/17 15:47 PJM [id number]) OT Summary Assessment and Plan Summary OT Impairments Balance Coordination Tone Grooming Dressing Toileting Bathing Toilet Transfers Shower Transfers Progress Towards Goals Progressing Toward Goals Assessment Summary Pt demonstrating improved bed mobility and ambulation compared to yesterday but still requires 2 person assist for safety due to retropulsion and poor balance. Pt not safe to d/c home with . Strongly recommend SNF for further subacute rehab services. Frequency of Treatment Frequency Of Treatment Once a Day Treatment Plan Other Treatment Recommendations and Next Standing at sink fro grooming Treatment Focus with chair behind Discharge Recommendations OT Discharge Recommendations SNF Rehab
[2017-11-06] MEDS: CARBIDOPA-LEVODOPA 25/100 TABLET 2 EACH PO (20:23)
--- NOTE | 2017-11-06 22:32 | PC.NURSE ---
Evening Shift Note A&Ox2, VSS, 95% RA. Confused at times, non-impulsive, easily redirected, forgets how to use call light, frequent rounding. Hx of frequent falls, bed alarm, slept through most of shift, up to chair for meals. Up w/ 1p/FWW stand and pivot to commode/chair, requires clear direction d/t lack of coordination. L H PIV SL. Dc to SNF tomorrow.
[2017-11-07 04:46] VITALS: BP 142/76; PULSE 55; RESP 15; TEMP 37.4; O2SAT 96
[2017-11-07 05:50] LABS: Alanine Aminotransferase 19 IU/L (21-72); Albumin 3.3 g/dL (3.5-5.0); Albumin Globulin Ratio 1.3 (1.0-2.8); Alkaline Phosphatase 56 U/L (38-126); Aspartate Aminotransferase 17 IU/L (17-59); BUN Creatinine Ratio 17.1 (6-22); Bilirubin Total 0.9 mg/dL (0.2-1.3); Blood Urea Nitrogen 12 mg/dL (9-20); Calcium 8.5 mg/dL (8.4-10.2); Carbon Dioxide 29 mmol/L (22-32); Chloride 106 mmol/L (98-107); Estimated Glomerular Filt Rate > 60.0 mL/min (>60); Globulin 2.6 g/dL (1.7-4.1); Glucose 91 mg/dL (80-110); HEMOLYSIS 16 (0-50); Potassium 3.7 mmol/L (3.4-5.1); Sodium 143 mmol/L (137-145); Total Protein 5.9 g/dL (6.3-8.2)
[2017-11-07 05:52] LABS: Hematocrit 37.3 % (41-53); Mean Corpuscular HGB Conc 34.9 % (30-36); Mean Corpuscular Hemoglobin 30.5 PG (26-34); Mean Corpuscular Volume 87.5 fL (80-100); Platelet Count 133 X10^3/uL (150-400); Red Blood Cell Count 4.26 X10^6/uL (4.5-5.9); Red Cell Distribution Width 12.9 % (11.6-14.8); White Blood Cell Count 7.6 X10^3/uL (4.5-11.0)
[2017-11-07 05:56] LABS: Add Manual Diff / Slide Review YES
[2017-11-07] MEDS: PANTOPRAZOLE 20 MG TABLET PO (06:04)
[2017-11-07] MEDS: [UNRECOGNIZED DRUG - OTHER] PO ×2 (06:04→09:04)
[2017-11-07] MEDS: CARBIDOPA PO ×2 (06:04→09:04)
[2017-11-07] MEDS: LEVODOPA PO ×2 (06:04→09:04)
[2017-11-07 06:43] LABS: Neutrophils Absolute Manual 4864 /uL (3000-5900); Total Cells Counted 100
[2017-11-07 06:45] LABS: RBC Morphology Normal Morphology
[2017-11-07 08:00] VITALS: BP 141/89; PULSE 59; RESP 14; TEMP 36.7; O2SAT 93
--- NOTE | 2017-11-07 08:20 | PC.NURSE ---
Addendum entered by Miguel Kinney R.N. 11/07/17 14:11: Report was give to Destiny as she called this nurse back. Patient left w/ transporter and packet was handed to transported from [facility]. Original Note: Addendum entered by Miguel Kinney R.N. 11/07/17 13:06: Several calls have been made to [facility] to Destiny to give report regarding patient. Patient is due to go to facility at 1330. Patient is dressed and cleaned up, D/C has been completed and IV has been d/c'd. Patient is sitting up to chair at this time, has stepped away for a moment. This nurse will call for 3rd time to attempt to give report. LOM asking for a call back to hospital. Original Note: patient is sleeping soundly in room at this time, this nurse will assess once patient arises from AM.
[2017-11-07] MEDS: RIVASTIGMINE 9.5 MG 9.5 EACH TD (08:57)
[2017-11-07] MEDS: ENOXAPARIN 40 MG/0.4 ML SYRINGE SUBCUT (08:58)
[2017-11-07] MEDS: SERTRALINE 50 MG TABLET 100 MG PO (08:58)
[2017-11-07] MEDS: ATORVASTATIN 20 MG TABLET 40 MG PO (08:58)
[2017-11-07 09:00] VITALS: O2SAT 97
--- NOTE | 2017-11-07 09:36 | P.DS_ITS ---
History of Present Illness Chief complaint: complications with Parkinsons Narrative: See history and physical Discharge Providers Date of admission: 11/03/17 15:59 Primary care physician: Hao Peña MD Consults: 11/03/17 16:25 Consult to Discharge Planning Routine Comment: options for family Consult to Occupational Therapy Evaluate & Treat Comment: Physician Instructions: Evaluate and treat Consult to Physical Therapy Evaluate & Treat Comment: Physician Instructions: Evaluate and Treat Discharge provider: Hao Peña MD Discharge Date: 11/07/17 Summary Discharge Diagnosis: Acute delirium Parkinson's Suspected Parkinson's dementia Generalized weakness Ataxia and fall risk Hyperlipidemia Depression Hospital Course: Admitted to due to worsening delirium type symptoms, with increasingly impulsive behavior, falling more frequently, ataxic, and wandering away from house. The course of stay he has perhaps improved somewhat with physical therapy and occupational therapy but still markedly impaired and at considerable risk. Medically otherwise has been stable. Status at Discharge Cognitive/behavioral status at discharge: Moderately impaired due at least in part to suspected Parkinson's dementia Functional status at discharge: wheelchair bound Overall status at discharge: patient is not back to baseline Time Spent with Patient Greater than 30 minutes Exam Vital Signs (past 8 hours): Vital Signs - 8 hr 3 11/07/17 04:46 Temperature 99.3 F Pulse Rate 55 L Respiratory Rate 15 Blood Pressure 142/76 H Pulse Oximetry 96 Pulse Oximetry 96 Oxygen Delivery Method Room Air Oxygen Flow Rate 0 Narrative Exam Narrative: Found sitting up in bed awake and alert and interactive. Seems somewhat confused otherwise unchanged. HEENT unremarkable neck is benign chest is clear heart regular without murmur abdomen benign extremities benign neurologically still with marked tremor in extremities left upper most. Objective Labs Result Diagrams: 11/07/17 05:18 11/07/17 05:18 Labs: Laboratory Results - last 24 hr 11/07/17 11/07/17 05:18 05:18 WBC 7.6 RBC 4.26 L Hgb 13.0 L Hct 37.3 L MCV 87.5 MCH 30.5 MCHC 34.9 RDW 12.9 Plt Count 133 L Neut % (Auto) Not Reportable Lymph % (Auto) Not Reportable [place] % (Auto) Not Reportable Eos % (Auto) Not Reportable Baso % (Auto) Not Reportable Total Counted 100 Seg Neutrophils % 64.0 Lymphocytes % (Manual) 30.0 Monocytes % (Manual) 5.0 Eosinophils % (Manual) 1.0 L Neutrophils # (Manual) 4864 RBC Morphology Normal morphology Sodium 143 Potassium 3.7 Chloride 106 Carbon Dioxide 29 BUN 12 Creatinine 0.70 Estimated GFR > 60.0 BUN/Creatinine Ratio 17.1 Glucose 91 Calcium 8.5 Total Bilirubin 0.9 AST 17 ALT 19 L Alkaline Phosphatase 56 Total Protein 5.9 L Albumin 3.3 L Globulin 2.6 Albumin/Globulin Ratio 1.3 Discharge Plan Discharge Plan Transfer to: [facility] Under care of provider: Mariana Transportation: Wheelchair Discharge comment: Somewhat frail, advanced Parkinson's, with suspected early Parkinson's dementia, with somewhat impulsive behavior leading to falling tendency, plus ataxia. I certify the postop hospital group home care is medically necessary on a continuing basis for any conditions for which he/ she received care during this hospitalization.: Yes The receiving facility has agreed to accept transfer and provide medical treatment.: Yes Discharge Med Rec/Prescriptions Discharge Orders: Discharge (Order); Ordered 11/07/17 Ordered By: Hao Peña Discharge Health Status Brief summary of current health status: See comment Multidrug resistant organism: No MDRO MDRO Verified by culture: Yes Precautions: [place] Provider Discharge Instructions Diet: Diet as Tolerated Liquid consistency: Normal/Thin Food texture: Regular Special Rehabilitation Services Reason for rehabilitation: Other Rehab type: Physical therapy, Occupational therapy and Speech therapy Restrictions to mobility: Unsteady Discharge Data Primary Care Provider: Hao Peña Attending Provider: Hao Peña Admit Date/Time: 11/03/17 15:59 Quality VTE Deep Vein Thrombosis/Pulmonary Embolism Present on Admission: No
--- NOTE | 2017-11-07 10:20 | CM.DPC ---
DCP Discharge to [facility] Per MD, pt is medically stable to d/c to SNF today. Per RN, pt would be ready to d/c anytime this morning and to be bedside within 15 min. SW called [facility] admissions and left message with update on d/c orders and requested time for transport. CARLOS A Alberto kindly willing to fax d/c packet to [facility] when available. Plan: SW to follow for return call from [facility] on time of transport for pt today. TOÑO Roberts
[2017-11-07 12:00] VITALS: BP 102/66; PULSE 54; RESP 16; TEMP 36.8; O2SAT 94
--- NOTE | 2017-11-07 16:56 | OT.IP.TRT ---
Current Diagnoses Hyperlipidemia, unspecified (11/03/17) Volume depletion, unspecified (11/03/17) Dementia in other diseases classified elsewhere without behavioral disturbance (11/03/17) Parkinson's disease (11/03/17) Dysphagia, unspecified (11/03/17) Repeated falls (11/03/17) Disorientation, unspecified (11/03/17) Weakness (11/03/17) Occupational Therapy Treatment Note M3 OT- IP Subjective and Pain Start: 11/05/17 17:13 Freq: Status: Active Protocol: Document 11/07/17 11:32 PJM (Rec: 11/07/17 16:56 PJ [id number]) OT- Subjective Occupational Therapy Visit Type Type Treatment Note Visit Start Time 11:00 Visit Stop Time 11:32 Total Visit Minutes 32 OT Pain Assessment Pain When Pain Assessed After Treatment Pain Present Pain Present Denied Pain M4 OT- IP ADL's Start: 11/05/17 17:13 Freq: Status: Active Protocol: Document 11/07/17 11:32 PJM (Rec: 11/07/17 16:56 PJ [id number]) OT DYC-Xhen-Sqjyclp General Evaluation Self-Feeding Ability Standby Assistance Areas Needing Assistance Cutting Food Opening Containers Comments OT Self-Feeding Comments Intermittent verbal cues to focus attention to task OT ADL-Grooming General Evaluation Grooming Ability Minimal Assistance Areas Needing Assistance Retrieving/Set-up of Grooming Items Combing/Brushing Hair Comments OT Grooming Comments Grooming completed seated in chair due to decreased standing balance at sink. Pt unable to use sink for support duirng standing trial due to motor planning and perceptual deficits. OT ADL-Dressing General Eval Upper Body Dressing Ability Moderate Assistance Lower Body Dressing Ability Maximum Assistance Areas Needing Assistance Pull-Over Shirt Pants/Shorts Comments OT Dressing Comments Pt needs min assist to remove pullover shirt and mod assist to don it. Pt needs max verbal cues to orient clothing and sequence task due to perceptual and motor planning deficits. OT ADL-Toileting General Evaluation Toileting Ability Total Assistance Areas Needing Assistance Manage Clothing Perform Perineal Hygiene Comments OT Toileting Comments One person to assist pt with standing with FWW while second person does hygiene and clothing management. OT ADL-Bathing Bathing Type Bathing Type Sponge Bath General Evaluation Bathing Ability Moderate Assistance Comments OT Bathing Comments Pt completed seated upper body sponge bath with mod assist and max verbal cues. M7 OT- IP Mobility and Balance Start: 11/05/17 17:13 Freq: Status: Active Protocol: Document 11/07/17 11:32 PJM (Rec: 11/07/17 16:56 PJM [id number]) OT-Transfer Assessment Sit to and From Stand Sit to and from Stand Moderate Assistance 1 Person Assistance OT- Balance Assessment Sitting Balance and Reactions Static Sitting Balance Ability Fair Dynamic Sitting Balance Ability Fair Standing Balance and Reactions Static Standing Balance Ability Poor Dynamic Standing Balance Ability Poor Comments Other Balance Tests/Deviations/Treatment Pt continues to exhibit : significant retropulsion when standing with FWW. M9 OT- IP Assessment and Plan Start: 11/05/17 17:13 Freq: Status: Active Protocol: Document 11/07/17 11:32 PJM (Rec: 11/07/17 16:56 PJM [id number]) OT Summary Assessment and Plan Summary OT Impairments Strength Balance Functional Cognition Functional Mobility Grooming Dressing Toileting Bathing Toilet Transfers Shower Transfers Progress Towards Goals Slow Progress due to Medical Issues Assessment Summary Pt needing significant assistance with dressing and so care in standing as noted above. Pt not safe to try grooming tasks standing at sink at present as he lacks sufficient standing balance. Pt has significant motor planning and depth perception deficits which interfere with all functional mobility and self care tasks. He continues to exhibit severe retropulsion in standing. Pt's observing today's session and has been looking into options for getting more caregiver assist at home. Pt currently requires 2 person assist for some mobility and self care tasks for safety.Pt plans to d/c to SNF today for further subacute rehab services.
== END 2017-11-07 13:45 | DRG 57 ==
LOC: ED 15:57 → AC 16:00
PROVIDERS: Family Medicine; Admitting Provider Family Medicine; Emergency Provider Emergency Medicine; Family Provider Family Medicine; PCP Family Medicine; Visit Provider Family Medicine
DX: G20 Parkinson's disease (principal); F05 Delirium due to known physiological condition; F02.81 Dementia in other diseases classified elsewhere, unspecified severity, with behavioral disturbance; Z91.83 Wandering in diseases classified elsewhere; E78.5 Hyperlipidemia, unspecified; R13.10 Dysphagia, unspecified; Z91.81 History of falling; Z87.891 Personal history of nicotine dependence; R27.0 Ataxia, unspecified; E86.0 Dehydration; R53.1 Weakness
CPT/HCPCS: 36415; 36591; 36592; 70450; 80048; 80053; 80305; 80320; 81001; 82140; 84146; 85025; 85610; 85730; 93005; 96361; 96365; 97110; 97116; 97162; 97166; 97530; 97535; 99283; 99284; J1650

== ENCOUNTER → 2017-12-18 17:01 | Outpatient (REF) | payer OTHER, SELFPAY ==
[2017-11-03 16:42] VITALS: BMI 27.8
[2017-12-18 18:44] LABS: Appearance Urine UA CLOUDY; Bilirubin Urine UA NEGATIVE (NEGATIVE); Glucose Urine UA NEGATIVE (Normal); Ketones Urine UA TRACE (NEGATIVE); Leukocyte Esterase Urine UA 3+ (NEGATIVE); Nitrite Urine UA Negative (Negative); Occult Blood Urine UA 3+ (Negative); Protein Urine UA 1+ (Negative); pH Urine UA 5.5 (4.5-8.0)
[2017-12-18 18:45] LABS: Color Urine UA Orange
[2017-12-18 19:39] LABS: Bacteria Urine Many (>30); Culture Indicated Urine Specimen Cultured; RBC Urine 1-5/HPF (0-5/HPF); Squamous Epithelial Cell Urine 0-1 /HPF; WBC Urine >100/HPF (0-5/HPF)
== END ==
LOC: LAB 17:01
PROVIDERS: Family Provider Family Medicine; PCP Family Medicine; Visit Provider Family Medicine
DX: R32 Unspecified urinary incontinence (principal)
CPT/HCPCS: 81001; 87077; 87086; 87186

== ENCOUNTER → 2018-01-10 18:10 | Outpatient (REF) | payer OTHER, SELFPAY ==
[2017-11-03 16:42] VITALS: BMI 27.8
[2018-01-10 18:31] LABS: Bilirubin Urine UA 1+ (NEGATIVE); Color Urine UA YELLOW; Glucose Urine UA TRACE g/dL (Normal); Ketones Urine UA 1+ (NEGATIVE); Leukocyte Esterase Urine UA 2+ (NEGATIVE); Nitrite Urine UA POSITIVE (Negative); Occult Blood Urine UA 3+ (Negative); Protein Urine UA 1+ (Negative); Specific Gravity Urine UA 1.015 (1.000-1.035)
[2018-01-10 19:09] LABS: Appearance Urine UA Slightly Cloudy
[2018-01-10 19:10] LABS: RBC Urine 1-5/HPF (0-5/HPF); WBC Urine 10-30/HPF (0-5/HPF)
[2018-01-10 19:11] LABS: Amorphous Sediment Urine 1+; Bacteria Urine Many (>30); Calcium Oxalate Crystals Urine Few; Culture Indicated Urine Specimen Cultured; Mucus Urine 3+ (Negative); Squamous Epithelial Cell Urine 0-1 /HPF; Uric Acid Crystals Urine Few
[2018-01-10 19:18] LABS: Ictotest Urine Negative (Negative)
== END ==
LOC: LAB 18:10
PROVIDERS: Family Provider Family Medicine; PCP Family Medicine; Visit Provider Family Medicine
DX: N39.0 Urinary tract infection, site not specified (principal)
CPT/HCPCS: 81001; 87077; 87086; 87186

== ENCOUNTER 2018-01-12 22:25 | Emergency (ER) | payer OTHER, SELFPAY ==
[2017-11-03 16:42] VITALS: BMI 27.8
[2018-01-12 22:33] VITALS: BP 104/67; PULSE 75; RESP 18; TEMP 36.4; O2SAT 97
--- NOTE | 2018-01-12 22:42 | DI.CT.S_ITS ---
PROCEDURE: CT HEAD/BRAIN WO CON INDICATIONS: 72 year-old male with history of Parkinson's disease status post fall. TECHNIQUE: Noncontrast 4.5 mm thick angled axial sections acquired from the foramen magnum to the vertex, with coronal and sagittal reformats. For radiation dose reduction, the following was used: automated exposure control, adjustment of mA and/or kV according to patient size. COMPARISON: [facility], CT, CT HEAD/BRAIN WO CON, 11/03/2017, 13:24. FINDINGS: Image quality: Evaluation limited by artifact secondary to patient motion. CSF spaces: Basal cisterns are patent. No definite extra-axial fluid collections. Ventricles are normal in size and shape. Brain: No definite intracranial hemorrhage, mass, or mass effect. Melgoza-white matter interface appears grossly preserved. Skull and face: Calvarium and visualized facial bones are intact, without suspicious lesions. Sinuses: Visualized sinuses and mastoids are clear. IMPRESSION: 1. Limited study demonstrates no definite acute intracranial abnormality. Dictated by: Juan Miguel Gardner M.D. on 01/13/2018 at 8:10 Approved by: Juan Miguel Gardner M.D. on 01/13/2018 at 8:12
--- NOTE | 2018-01-12 22:42 | DI.RAD.S_ITS ---
PROCEDURE: XR PELVIS 1-2V INDICATIONS: fall with left hip pain TECHNIQUE: Single view of the pelvis acquired. COMPARISON: None. FINDINGS: Bones: No displaced fractures or dislocations. There is mild axial joint space narrowing in the hips bilaterally. No suspicious bony lesions. Soft tissues: Visualized bowel gas pattern is normal. No suspicious soft tissue calcifications. IMPRESSION: 1. No displaced fracture or dislocation. If clinical concern persists for a nondisplaced fracture, further evaluation may be obtained with CT or MRI. Dictated by: Juan Miguel Gardner M.D. on 01/13/2018 at 11:36 Approved by: Juan Miguel Gardner M.D. on 01/13/2018 at 11:37
--- NOTE | 2018-01-12 22:42 | ED.FALL ---
HPI - Fall General Chief Complaint: Fall Stated Complaint: Fall at home, hx katherine Time Seen by Provider: 01/12/18 22:29 Source: EMS Mode of arrival: EMS Limitations: other (Parkinson's disease) History of Present Illness HPI Narrative: Patient is a 72-year-old male DNR comfort measures only brought in by EMS after they were called to the patient's home by the patient's for concerns of a fall. Initially very difficult to obtain the history of why the patient was here. There was no reported injury from the fall. There were some reports that the was stating that the patient has been ?more aggressive ?over the past couple days. Unable to obtain any history from the patient secondary to his Parkinson's disease. The was not here in the emergency department when EMS arrived. Eventually I was able to talk to the patient's over the phone who stated that the the region she called the paramedics was because she felt that the patient was becoming more aggressive and she could not take care of him. She did state that the patient has been falling more recently. She states that he is currently being treated for a urinary tract infection and she feels that this is the reason why he has been falling. There were reports that the patient does have home health. Related Data Home Medications Medication Instructions Recorded Confirmed atorvastatin [Lipitor] 40 mg PO QDAY #0 06/23/16 01/12/18 carbidopa 50 mg PO HS #0 06/23/16 01/12/18 [id number] See Label Instructions .ROUTE 06/23/16 01/12/18 .COMPLEX #0 rivastigmine [Exelon] 9.5 mg TD Q DAY #0 06/23/16 01/12/18 sertraline 100 mg PO DAILY 11/03/17 01/12/18 tolterodine 1 tab PO DAILY 11/03/17 01/12/18 Previous Rx's Medication Instructions Recorded acetaminophen 650 mg PO Q6HR PRN #100 tab 11/07/17 alum-mag hydroxide-simeth [Mag-Al 30 ml PO Q6HR PRN #200 ml 11/07/17 Plus] magnesium hydroxide [Milk of 30 ml PO DAILY PRN #200 ml 11/07/17 Magnesia] Allergies Allergy/AdvReac Type Severity Reaction Status Date / Time No Known Drug Allergies Allergy Verified 11/05/17 12:53 Review of Systems Review of Systems unobtainable due to mental condition and unobtainable due to mental status Exam Initial Vital Signs Initial Vital Signs: Vital Signs Temperature 97.5 F L 01/12/18 22:33 Pulse Rate 75 01/12/18 22:33 Respiratory Rate 18 01/12/18 22:33 Blood Pressure 104/67 01/12/18 22:33 Pulse Oximetry 97 01/12/18 22:33 Const General: well developed and well groomed Orientation: alert and awake HENMT Head: normal to inspection and normocephalic Resp Effort & Inspection: normal respiratory effort Auscultation: clear to auscultation bilaterally Cardio Rate: regular rate Rhythm: regular rhythm Pulses: radial pulses present GI Inspection: non-distended Palpation: soft and No firm Skin Rashes: no rashes Neuro Other: Patient was very soft-spoken and difficulty here. He was able to squeeze my fingers when I asked him questions. When asked him if he was in pain he did squeeze my fingers. It did seem to be that he was in pain around his hips. He also stated that his head was hurting. Extrem Other: No gross deformities. [facility] Medical History Parkinson's disease dementia (Chronic) Hyperlipemia (Chronic) Multiple falls (Acute) Parkinson's disease (Chronic) Weakness generalized (Chronic) Dysphagia (Chronic) Social History household members: spouse Smoking Status: Former smoker alcohol intake: current Scores GCS [place] coma scale eye opening: Spontaneous [place] coma scale verbal response: None [place] coma scale motor response: Obey commands [place] coma scale total score: 11 Course Orders Ordered: ED Orders 01/12/18 22:42 CT head/brain wo con Stat XR pelvis 1-2V Stat 01/13/18 00:48 XR chest 1V Stat 01/13/18 00:49 EKG-12 Lead Stat Vital Signs - 8 hr 01/13/18 00:34 01/13/18 02:07 01/13/18 04:05 Pulse Rate 66 65 64 Respiratory Rate 20 Blood Pressure [Right Arm] 125/77 H 137/79 H 126/80 H Pulse Oximetry 100 93 01/13/18 05:17 Pulse Rate Respiratory Rate Blood Pressure [Right Arm] 146/73 H Pulse Oximetry MDM - Fall Imaging Data CT scan - head: Radiologist's impression: Technically compromised by motion. No acute intracranial traumatic abnormality Chest x-ray: Attestation: I personally reviewed and interpreted this imaging study as follows: My impression: Bilateral patchy infiltrates. No focal consolidations. Unchanged from prior chest x-ray X-ray pelvis: Attestation: I personally reviewed and interpreted this imaging study as follows: My impression: Appropriate changes. No fractures. No dislocation ECG Data Attestation: I personally reviewed and interpreted this ECG as follows: Prior ECG tracings: not available for review Interpretation: Sinus rhythm Ventricular rate is 62 Normal axis Normal QRS Normal QTC No ST T wave changes MDM Narrative Medical decision making narrative: Patient has a pansensitive E coli urinary tract infection in is on appropriate antibiotics for this. When he arrived difficult to obtain history from the patient does appear that the called EMS because she was having difficulty taking care of the patient at home. I informed her over the phone that it would be more than likely that the patient would not meet admission criteria and that she would have to come and pick him up. She stated that she could not come until the morning to pick him up. During his stay here in the emergency department he was calm. He was not combative. While he was here he did seem to become more lucid and was able to eventually talk in clear sentences. He states that last evening he was just exhausted and also his was exhausted. He states that he has been ?tumbling ?recently. At 1 point he did state that he was having chest pain and that was the reason for the EKG and chest x-ray. Upon my re-evaluation patient states that he was only having pain around his hips and the hip x-ray today does not show any acute fractures. He did urinate here in the ER. He has remained afebrile. Does not tachycardia. He has no signs of sepsis. Will hold on labs for now. He is on appropriate antibiotics for his urinary tract infection. Patient did seem to know why he was here and what was going on. He was kept here in the emergency department overnight and the plan will be to contact his in the morning to come and pick him up. Discharge Plan Departure Patient Disposition: Home Clinical Impression: Parkinson's disease, Multiple falls, Urinary tract infection Instructions: How to Prevent Falls Activity Restrictions/Additional Instructions: Nabil is on the appropriate antibiotics for his urinary tract infection. I recommend that if caring for Nabil at home is becoming an issue that talking with the primary care doctor regarding in either increase in the home health or potentially placement into assisted living. No emergent process was found today on his exam. He may return to the emergency department at any point for new or worsening symptoms. Prescriptions: No Action rivastigmine [Exelon] 9.5 MG/24 HR patch 24 hour 9.5 mg TD Q DAY Qty: 0 RF: 0 atorvastatin [Lipitor] 40 MG tablet 40 mg PO QDAY Qty: 0 RF: 0 [id number] 18.75-75-200 mg Tablet See Label Instructions .ROUTE .COMPLEX Qty: 0 RF: 0 carbidopa 25 MG tablet 50 mg PO HS Qty: 0 RF: 0 tolterodine 4 mg capsule,extended release 24hr 1 tab PO DAILY RF: 0 sertraline 100 mg Tablet 100 mg PO DAILY RF: 0 acetaminophen 325 mg Tablet 650 mg PO Q6HR PRN (Reason: As Needed For Fever/Mild Pain) Qty: 100 RF: 0 magnesium hydroxide [Milk of Magnesia] 400 mg/5 mL Suspension 30 ml PO DAILY PRN (Reason: Constipation) Qty: 200 RF: 0 alum-mag hydroxide-simeth [Mag-Al Plus] 200-200-20 mg/5 mL Suspension 30 ml PO Q6HR PRN (Reason: Dyspepsia) Qty: 200 RF: 0
[2018-01-13 00:34] VITALS: BP 125/77; PULSE 66; O2SAT 100
--- NOTE | 2018-01-13 00:48 | DI.RAD.S_ITS ---
PROCEDURE: XR CHEST 1V INDICATIONS: chest pain TECHNIQUE: One view of the chest was acquired. COMPARISON: [facility], , CHEST 1 VIEW, 06/25/2016, 10:50. FINDINGS: Surgical changes and devices: None. Lungs and pleura: No pleural effusions or pneumothorax. Lungs are clear. Mediastinum: Mediastinal contours appear normal. Heart size is normal. Bones and chest wall: No suspicious bony lesions. Overlying soft tissues appear unremarkable. IMPRESSION: 1. No acute cardiopulmonary disease. Dictated by: Juan Miguel Gardner M.D. on 01/13/2018 at 11:37 Approved by: Juan Miguel Gardner M.D. on 01/13/2018 at 11:38
[2018-01-13 02:07] VITALS: BP 137/79; PULSE 65; RESP 20; O2SAT 93
[2018-01-13 04:05] VITALS: BP 126/80; PULSE 64
[2018-01-13 05:17] VITALS: BP 146/73
--- NOTE | 2018-01-13 06:06 | PC.NURSE ---
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
--- NOTE | 2018-01-13 06:17 | PC.NURSE ---
Pt requested water, assisted pt with holding cup. Pt tolerated PO intake.
[2018-01-13 07:27] VITALS: BP 133/66; PULSE 65; RESP 18; O2SAT 97
== END 2018-01-13 07:28 | disposition home or self-care (01) ==
PROVIDERS: Emergency Provider Emergency Medicine; Family Provider Family Medicine; PCP Family Medicine
DX: G20 Parkinson's disease (principal); R29.6 Repeated falls; N39.0 Urinary tract infection, site not specified
CPT/HCPCS: 70450; 71045; 72170; 93005; 93010; 99284